=== PATIENT | male | born 1955 | race Caucasian/White ===

== ENCOUNTER 2020-10-20 13:48 | Outpatient (CLI) | payer OTHER, SELFPAY ==
--- NOTE | ~2020-10-20 | XR_ITS ---
XR lumbar spine 2-3V 10/20/2020 14:13 Indication: Low back pain Procedure: 3 views lumbar spine Comparison: No prior studies for comparison. Findings: There is mild levocurvature of the lumbar spine. There is disc narrowing at all lumbar leve ls. There is moderate facet hypertrophy of the mid and lower lumbar spine. There is grade 1 degenerat suyapa spondylolisthesis at L4-5. No acute fracture or traumatic malalignment. Sacral foramen are symmet franck. Impression: 1: Moderate lumbar spondylosis. Reviewed, dictated and finalized at location A. Impression: 1: Moderate lumbar spondylosis.
--- NOTE | ~2020-10-20 | CT_ITS ---
EXAMINATION: CT lung screening DATE: 10/20/2020 14:29 INDICATION: Nicotine dependence TECHNIQUE: Computed tomography (CT) of the chest was performed without intravenous contrast. The dose -length product was 252.14 mGy-cm. Automated exposure control and iterative reconstruction technique were employed. COMPARISON: None FINDINGS: There is atherosclerosis and ectasia of the aortic arch measuring up to 4 cm. Nonenlarged a xillary lymph nodes. No mediastinal or hilar lymphadenopathy. No significant pleural or pericardial e ffusion. There is atherosclerosis of the coronary arteries. There is a linear density in the right mi ddle lobe measuring 7 x 2 mm abutting the minor fissure. There is left upper lobe scarring. There is suggestion of partial left upper lobectomy. Clinically correlate. No endobronchial lesions. There is left lower lobe scarring. Mild thoracic spondylosis. No lytic or blastic lesions. IMPRESSION: 1. Lung-RADS category 2: Benign appearance or behavior. Continue annual screening with noncontrast lo w-dose chest CT in 12 months. Reviewed, dictated and finalized at location A. IMPRESSION: 1. Lung-RADS category 2: Benign appearance or behavior. Continue annual screeni ng with noncontrast low-dose chest CT in 12 months.
== END 2020-10-20 13:49 | disposition home or self-care (01) ==
PROVIDERS: PCP Family Medicine; Visit Provider Physician Assistant Medical
DX: Z12.2 Encounter for screening for malignant neoplasm of respiratory organs (principal); Z87.891 Personal history of nicotine dependence
CPT/HCPCS: 71271; 72100

== ENCOUNTER 2021-06-09 21:33 | Inpatient (IN) | payer OTHER, SELFPAY ==
--- NOTE | ~2021-06-09 | XR_ITS ---
EXAMINATION: XR chest 2V EXAM DATE: 06/09/2021 22:07 INDICATION: Left-sided chest pain, worse today. TECHNIQUE: Frontal and lateral projections of the chest obtained and reviewed. There is no prior sulema dy for comparison. FINDINGS: Old left 6th rib fracture. There is left pleural blunting probably chronic. No confluent c onsolidation, pneumothorax or pleural effusion suspected. Cardiomediastinal silhouette is normal. IMPRESSION: No acute cardiopulmonary findings. Reviewed, dictated and finalized at location A. ULTING DATABASE ADMINISTRATOR
[2021-06-09 21:34] VITALS: BP 159/118; PULSE 112; RESP 20; TEMP 36.6; O2SAT 97
--- NOTE | 2021-06-09 21:48 | ECG_ITS ---
Measurements Intervals [place] Rate: 87 P: 69 ME: 157 QRS: 65 QRSD: 99 T: 50 QT: 386 QTc: 466 Interpretive Statements SINUS RHYTHM BORDERLINE ST ABNORMALITY- ANTEROLATERAL LEADS BORDERLINE ECG Electronically Signed On 06-10-2021 8:10:05 COMPOSITION BOARD PRESS OPERATOR by Rashaad Greenwood D.O.
--- NOTE | 2021-06-09 21:49 | ED.CHESTPAIN ---
HPI - Chest Pain General Chief Complaint: Chest Pain Stated Complaint: L sided chest pain, neck pain Time Seen by Provider: 06/09/21 21:38 Source: patient and RN notes reviewed Mode of arrival: ambulatory Limitations: no limitations History of Present Illness HPI narrative: This is a 66 year old male with history of hypertension, obesity, hyperlipidemia, and smoking who presents for evaluation of left chest pain. He started having pain 2 weeks ago. He describes left anterior chest pain with radiating pain to left upper arm with nausea. His pain has been intermittent and lasting a couple hours. He would go a few days with out pain. He developed worse pain around noon today that he states was constant. He denies diaphoresis, shortness of breath, cough, fever, vomiting. He thinks his pain may be worse with exertion. He denies history of heart disease, and he denies history of cardiac testing. EMS performed an EKG on patient. He was given aspirin 324 mg by EMS. He denies any chest pain currently. Related Data Home Medications Medication Instructions Recorded Confirmed aspirin 81 mg tablet,delayed 81 mg PO DAILY 08/20/19 06/10/21 release cyclobenzaprine 10 mg PO TID PRN 06/10/21 glycopyrrolate 1 mg PO BID 06/10/21 06/10/21 lisinopril 40 mg PO HS 06/10/21 06/10/21 metoprolol succinate 25 mg PO HS 06/10/21 06/10/21 tamsulosin 0.4 mg PO HS 06/10/21 06/10/21 triamterene-hydrochlorothiazid 1 cap PO HS 06/10/21 06/10/21 Allergies Allergy/AdvReac Type Severity Reaction Status Date / Time amlodipine Allergy Unknown syncope Verified 06/09/21 21:41 Review of Systems Review of Systems: All systems reviewed & are unremarkable except as noted in HPI and below Constitutional: Constitutional: Denies chills and Denies fever(s) ENT: Denies nasal congestion and Denies sore throat Respiratory: Respiratory: Denies cough PMFSH Past Medical History Medical History (Updated 06/10/21 @ 08:10 by Eirka Chu MD) Essential (primary) hypertension Mixed hyperlipidemia Obesity (BMI 30.0-34.9) Sleep apnea, unspecified Family History Family History (Updated 06/10/21 @ 05:45 by Roseanne Miles RN) Father Family history of Alzheimer's disease Malignant neoplasm of prostate Mother Family history of pancreatic cancer Diabetes mellitus Sibling Malignant neoplasm of prostate Cerebrovascular accident Social History Social History (Updated 03/08/21 @ 11:35 by Anna Marie Harper [facility]) Smoking packs per day: 1.5 Smoking cigarettes per day: 30.0 Smoking status: Current every day smoker Second hand tobacco smoke exposure: No Alcohol intake: current Drinks per week: 1 Substance use: current Substance use type: marijuana Gender identity (if verbalized by the patient): Male Spiritual care concerns: No Agree to blood products: Yes Exam Narrative: GENERAL: Well-appearing, well-nourished, and in no acute distress. HEAD: Normocephalic, atraumatic EYES: PERRLA and EOMI, conjunctiva clear without discharge THROAT:Mucous membranes moist, Oropharynx normal without erythema, exudate, peritonsillar swelling or fluctuance NECK: Supple, without lymphadenopathy or mass RESPIRATORY: No respiratory distress, Airway patent, Respirations non-labored, Clear to auscultation without rales, rhonchi or wheeze HEART: Regular rate and rhythm. No murmur heard. Normal peripheral pulses. ABDOMEN: Soft, nontender, nondistended, normal active bowel sounds. No masses. No rebound or guarding, No organomegaly. EXTREMITIES: No edema, normal strength with full range of motion. SKIN: Warm, dry, normal color without rash NEURO: Alert and oriented x3. CN 2-12 grossly intact. No focal deficits. PSYCH: Normal mood and affect. Course Consultations Consultation #1: I Discussed case with DR. Jay who accepts admission Date: 06/09/21 Time: 23:30 Consultation #2: I discussed case with Dr. Armando who will con
[2021-06-09 22:06] LABS: Basophils Absolute Auto 0.1 K/mm3 (0.0-0.1); Basophils Percent Auto 1.2 % (0.2-1.2); Eosinophils Absolute Auto 0.2 K/mm3 (0-0.3); Eosinophils Percent Auto 3.5 % (0-4.4); Hematocrit 42.9 % (42.0-52.0); Immature Granulocyte Absolute 0.01 K/mm3 (0.00-0.031); Immature Granulocyte Percent A 0.2 % (0-0.5); Lymphocytes Absolute Auto 2.27 K/mm3 (0.9-3.2); Lymphocytes Percent Auto 34.6 % (18.3-44.2); Mean Corpuscular Hemoglobin 32.5 pg (26-34); Mean Corpuscular Volume 93.1 fl (80-100); Mean Platelet Volume 10.8 fl (7.4-10.4); Monocytes Absolute Auto 0.6 K/mm3 (0.1-0.6); Monocytes Percent Auto 8.4 % (2.6-8.5); Neutrophils Absolute Auto 3.4 K/mm3 (1.3-6.7); Neutrophils Percent Auto 52.1 % (45.5-73.1); Platelet Count Result 179 k/mm3 (150-375); Red Blood Count 4.61 M/mm3 (4.6-6.20); Red Cell Distribution Width 12.3 % (11.5-14.5); White Blood Count 6.6 K/mm3 (4.5-10.0)
[2021-06-09 22:15] LABS: Prothrombin Time 13.4 Seconds (11.1-14.7)
[2021-06-09 22:16] LABS: Partial Thromboplastin Time 29.8 SECONDS (22.3-36.8)
[2021-06-09 22:21] LABS: Alanine Aminotransferase 30 U/L (4-50); Albumin Level 3.8 g/dL (3.5-5.1); Alkaline Phosphatase 60 U/L (38-126); Anion Gap 7 mmol/L (8-16); Aspartate Amino Transferase 30 U/L (17-59); Bilirubin,Total 0.5 mg/dL (0.2-1.3); Blood Urea Nitrogen 16 mg/dL (9-20); Calcium 8.9 mg/dL (8.4-10.2); Carbon Dioxide 34 mmol/L (22-30); Chloride 98 mmol/L (98-107); Estimated Glomerular Filt Rate > 60; Glucose 108 mg/dL (65-110); Lipase 95 U/L (23-300); Potassium 3.3 mmol/L (3.4-5.0); Sodium 139 mmol/L (137-145)
[2021-06-09 22:46] VITALS: BP 142/107; PULSE 99; RESP 18; O2SAT 97
[2021-06-09] MEDS: ASPIRIN 81 MG CHEWABLE TABLET 324 MG PO (22:46)
[2021-06-09 22:55] LABS: Troponin I 0.085 ng/mL (0.000-0.034)
--- NOTE | 2021-06-09 23:09 | ECG_ITS ---
Measurements Intervals [place] Rate: 108 P: 71 [place]: 157 QRS: 68 QRSD: 95 T: 26 QT: 345 QTc: 463 Interpretive Statements SINUS T[address] ST ABNORMALITY IN ANTEROLATERAL LEADS- CONSIDER ISCHEMIA BASELINE ARTIFACT- I, III, AVL ABNORMAL ECG Electronically Signed On 06-10-2021 16:13:09 SENIOR UI UX DESIGNER by Rashaad Greenwood D.O.
[2021-06-09] MEDS: NITROGLYCERIN SL 0.4 MG TABLET SUBLINGUAL (23:22)
[2021-06-09 23:23] VITALS: PULSE 93
[2021-06-09] MEDS: METOPROLOL TARTRATE 50 MG TAB PO (23:23)
[2021-06-09] MEDS: PANTOPRAZOLE SODIUM IV 40 MG VIAL IV PUSH (23:23)
[2021-06-09] MEDS: ONDANSETRON INJ 4 MG/2 ML VIAL IV PUSH (23:26)
--- NOTE | 2021-06-09 23:32 | PC.NURSE ---
1 tablet of 0.4mg of Nitroglycerin given sublingual. after 5 minutes of the first dose pt states his chest pressure has subsided.
[2021-06-10] VITALS (32 sets, daily range): BP systolic 115–197; BP diastolic 81–119; PULSE 66–92; RESP 12–20; TEMP 36.3–37.3; O2SAT 92–100; BMI 34.8
[2021-06-10] MEDS: ENOXAPARIN 120 MG/0.8 ML SYRINGE 110 MG SUB-Q (00:17)
[2021-06-10 01:47] LABS: Troponin I 0.619 ng/mL (0.000-0.034)
[2021-06-10 08:15] LABS: Hematocrit 41.9 % (42.0-52.0); Hemoglobin 14.5 g/dL (14.0-18.0); Mean Corpuscular HGB Conc 34.6 g/dl (32-36); Mean Corpuscular Hemoglobin 32.2 pg (26-34); Mean Corpuscular Volume 92.9 fl (80-100); Mean Platelet Volume 11.4 fl (7.4-10.4); Platelet Count Result 178 k/mm3 (150-375); Red Blood Count 4.51 M/mm3 (4.6-6.20); Red Cell Distribution Width 12.5 % (11.5-14.5); White Blood Count 6.1 K/mm3 (4.5-10.0)
--- NOTE | 2021-06-10 09:02 | PM.CNCAR ---
Assessment and Plan Additional Plan 66-year-old man presenting with intermittent ischemic chest pain for about 2 weeks. ECG shows some modest diffuse ST segment depression and he has had a [id number] troponin rise. Risk factors are multiple and include hypertension dyslipidemia and longstanding cigarette smoking. In this setting catheterization is clearly indicated and has been recommended the patient understands this. I explained the procedure in detail luting the risks he wishes to proceed. We will perform an angiogram later today and and further recommendations will be forthcoming Allan Middleton MD [facility] History of Present Illness History of Present Illness Consult date/time: 06/10/21 09:02 Consult reason: chest pain Reason For Visit: Chest pain, elevated troponin Narrative: This is a pleasant 66-year-old man I am seeing at the request of the hospitalist's today in consultation because of acute coronary syndrome/non ST elevation [place]. he is not really see known to have any coronary artery disease but before this and has been having symptoms of intermittent chest pain for about 2-3 weeks. The symptoms began before Thanksgiving he has describes episodes that occur sporadically where he has some retrosternal burning like chest pain radiating into the left shoulder and down the left arm. These episodes would sometimes be transient for a few minutes other times would last for a number of hours. He contacted his PCP about these symptoms and was advised to come to the emergency room which he did not. Yesterday he had an episode that was even more prolonged and lasted most of the day so he finally decided to come into the emergency department. His ECG in the ED demonstrates sinus rhythm with some very mild ST segment depression somewhat globally. His troponin levels have risen from minimally elevated to 1.9 and in this setting I am seeing him in consultation. He has received aspirin, a dose of Lovenox topical nitrates his beta-roly and in this setting is being seen in consultation he seems to be comfortable this morning and denies any other complaints. He once again states he has not been known to have any cardiac diagnosis before this. He has multiple risk factors including longstanding hypertension, dyslipidemia and longstanding cigarette smoking. 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 He eventually underwent a left upper lobectomy and does not know any specific diagnosis but was clear in that he did not have a malignancy. Review of Systems Constitutional: Constitutional: Reports no additional constitutional complaints Eyes: Eyes: Reports no additional eye complaints ENT: Reports system reviewed and no additional complaints, except as documented Cardiovascular: Cardiovascular: Reports as per HPI Respiratory: Respiratory: Reports as per HPI Gastrointestinal: Gastrointestinal: Reports no additional gastrointestinal complaints Musculoskeletal: Musculoskeletal: Reports no additional musculoskeletal complaints Integumentary/Breasts: Skin/Breast: Reports system reviewed and no additional complaints, except as docu Neurologic: Reports system reviewed and no additional complaints, except as documented Endocrine: Endocrine: Reports no additional endocrine complaints Hematologic/Lymphatic: Hematologic/Lymphatic: Reports no additional hematologic/lymphatic complaints Allergic/Immunologic: Allergic/Immunologic: Reports no additional allergic/immunologic complaints [facility] Past Medical History Medical History (Updated 06/10/21 @ 08:10 by Erika Chu MD) Essential (primary) hypertension Mixed hyperlipidemia Obesity (BMI 30.0-34.9) Sleep apnea, unspecified Family History Family History (Updated 06/10/21 @ 05:45 by
[2021-06-10 09:37] LABS: Anion Gap 4 mmol/L (8-16); Blood Urea Nitrogen 16 mg/dL (9-20); Carbon Dioxide 38 mmol/L (22-30); Chloride 98 mmol/L (98-107); Estimated CRCL calculation 90 ml/min; Estimated Glomerular Filt Rate > 60; Glucose 98 mg/dL (65-110); Magnesium 1.8 mg/dL (1.6-2.3); Potassium 3.5 mmol/L (3.4-5.0); Sodium 140 mmol/L (137-145)
[2021-06-10] MEDS: FAMOTIDINE 20 MG/2 ML VIAL IV PUSH ×2 (10:47→21:31)
--- NOTE | 2021-06-10 11:42 | WPDMODSED ---
Moderate Sedation Note-Pt Data Patient Data Diagnosis: acute coronary syndrome / non ST elevation NM Present Complaint: intermittent chest pain Procedure to be performed/Plan: left heart catheterization Allergies Allergy/AdvReac Type Severity Reaction Status Date / Time amlodipine Allergy Unknown syncope Verified 06/09/21 21:41 Home Medications Medication Instructions Recorded Confirmed Type aspirin 81 mg tablet,delayed 81 mg PO DAILY 08/20/19 06/10/21 History release cyclobenzaprine 10 mg PO TID PRN 06/10/21 History glycopyrrolate 1 mg PO BID 06/10/21 06/10/21 History lisinopril 40 mg PO HS 06/10/21 06/10/21 History metoprolol succinate 25 mg PO HS 06/10/21 06/10/21 History tamsulosin 0.4 mg PO HS 06/10/21 06/10/21 History triamterene-hydrochlorothiazid 1 cap PO HS 06/10/21 06/10/21 History Current Medications: Active Medications Aspirin (Aspirin 81 Mg Enteric Tablet) 81 mg PO DAILY [facility] Famotidine (Famotidine 20 Mg/2 Ml Vial) 20 mg IV PUSH Q12HR [facility] Last Admin: 06/10/21 10:47 Dose: 20 mg Documented by: Glycopyrrolate (Glycopyrrolate 1 Mg Tablet) 1 mg PO BID [facility] Acetaminophen (Ofirmev 1,000 Mg Ivpb) 1,000 mg in 100 mls @ 400 mls/hr IVPB Q6H PRN PRN Reason: Mild Pain (1-3) or Fever Stop: 06/11/21 00:31 Lisinopril (Lisinopril 20 Mg Tablet) 40 mg PO HS [facility] Metoprolol Succinate (Metoprolol Succinate Ext Rel 25 Mg Tabcr) 25 mg PO HS [facility] Morphine Sulfate (Morphine Sulfate (*Crx) 4 Mg/Ml Inj) 4 mg IV PUSH Q2H PRN PRN Reason: Pain Rated 7-10 Nitroglycerin (Nitroglycerin Sl 0.4 Mg Tablet) 0.4 mg SUBLINGUAL Q5MIN PRN PRN Reason: Chest Pain Ondansetron HCl (Ondansetron Inj 4 Mg/2 Ml Vial) 4 mg IV PUSH Q4H PRN PRN Reason: Nausea Tamsulosin HCl (Tamsulosin Hcl 0.4 Mg Capsule) 0.4 mg PO HS [facility] Triamterene/Hydrochlorothiazide (Triamterene 37.5 Mg/Hctz 25 Mg (Maxzide) Tablet) 1 tab PO HS [facility] Sedation/Anesthesia: No previous sedation/anesthesia problems (including family history). [facility] Past Medical History Medical History (Updated 06/10/21 @ 08:10 by Erika Chu MD) Essential (primary) hypertension Mixed hyperlipidemia Obesity (BMI 30.0-34.9) Sleep apnea, unspecified Family History Family History (Updated 06/10/21 @ 05:45 by Roseanne Miles RN) Father Family history of Alzheimer's disease Malignant neoplasm of prostate Mother Family history of pancreatic cancer Diabetes mellitus Sibling Malignant neoplasm of prostate Cerebrovascular accident Social History Social History (Updated 03/08/21 @ 11:35 by Anna Marie Harper CMA) Smoking packs per day: 1.5 Smoking cigarettes per day: 30.0 Smoking status: Current every day smoker Second hand tobacco smoke exposure: No Alcohol intake: current Drinks per week: 1 Substance use: current Substance use type: marijuana Gender identity (if verbalized by the patient): Male Spiritual care concerns: No Agree to blood products: Yes Mod Sed Physical Exam Physical Exam Pre Procedural Exam: Normal: Neck, Throat, Airway, Lungs, Heart Size ( PMI difficult to palpate), Heart Rate, Heart Rhythm and Extremities and Variation: Appearance ( obese white male no apparent distress) Hours since solid foods: 12 Hours since liquid intake: 12 Mallampati Classification: class II Internal Medicine - PN: Obj Da Vital Signs Vital Signs: Vital Signs - 24 hr 06/09/21 21:34 06/09/21 22:46 06/09/21 23:23 Temperature 36.6 C Pulse Rate 112 H 99 93 Respiratory Rate 20 18 Blood Pressure 159/118 H 142/107 H Pulse Oximetry 97 97 06/10/21 00:13 06/10/21 01:22 06/10/21 01:40 Temperature 36.4 C L Pulse Rate 88 72 71 Respiratory Rate 20 18 20 Blood Pressure 146/101 H 144/101 H 128/86 Pulse Oximetry 97 97 96 06/10/21 04:00 06/10/21 06:00 06/10/21 07:48 Temperature 36.4 C L 36.5 C Pulse Rate 83 74 69 Respiratory Rate 18 18 Blood Pressure 125/92 H 136/81 Pulse Oximetry 96 94 06/10/21 08:00 06/10/21 10:00 1
--- NOTE | 2021-06-10 12:40 | ECG_ITS ---
Measurements Intervals [place] Rate: 72 P: 77 [place]: 164 QRS: 64 QRSD: 114 T: 51 QT: 401 QTc: 441 Interpretive Statements SINUS RHYTHM INTRAVENTRICULAR CONDUCTION DELAY BASELINE ARTIFACT- I, II, III, AVR, AVL, AVF, V4 BORDERLINE ECG Electronically Signed On 06-10-2021 16:33:22 POLICE SERVICE TECHNICIAN by Rashaad Greenwood D.O.
--- NOTE | 2021-06-10 12:43 | WPDCARDPROC ---
Cardiac Cath Procedure Note Date of procedure:: 06/10/21 Performing physician:: Allan Middleton MD Indication:: non ST-elevation Brief clinical history:: this is a 66-year-old man without previous coronary history who has risk factors including hypertension dyslipidemia and smoking. He has been having intermittent ischemic chest pain for 2-3 weeks. He came in with worsening symptoms and a moderate troponin rise. Procedure Procedure performed:: Left ventriculography coronary angiography PCI(REGLA) to the circumflex Sedation/Medication given:: fentanyl 50 mg Versed 2 mg case start time 11:57 a.m. case end time 12:35 p.m. sedation provided by Geraldine Reza RN, trained observer Access site:: right femoral artery Estimated blood loss:: 20 cc Procedure note:: patient was brought to the cardiac catheterization lab postabsorptive state where the right femoral triangle was prepared and draped in the usual fashion. Anesthesia was provided 1% lidocaine infiltrated locally. Using the modified Seldinger technique the right common femoral artery was punctured and a 5 [place] vascular sheath was placed. After this left heart catheterization was carried out. I placed a 5 [place] angled pigtail catheter to document left-sided hemodynamics and to inject LV g in the CASE projection. Following this the left coronary artery was engaged and injected using a standard 5 [place] FL4 catheter. The right coronary was engaged and injected using a standard 5 [place] JR4 catheter. The cineangiograms were then reviewed and PCI of the circumflex was recommended and carried out as detailed below. Prior to PCI the 5 [place] sheath was changed out over the guidewire for a 6 [place] and the patient was then systemically anticoagulated with a bolus and infusion of Angiomax. He received aspirin and then 600 mg of clopidogrel orally as a loading dose prior to PCI. Following intervention the sheath was sutured into position the patient was taken to the holding area for recovery and sheath removal. The procedure was well tolerated there were no apparent complications and he left the microbiological laboratory technician with no evidence of a groin hematoma. Findings:: Hemodynamics: Central aortic pressure is 174/90 left ventricle 176/5 end-diastolic 20. No gradient on pullback across the aortic valve. The left main coronary artery is nicely patent the left anterior descending is a moderate caliber artery extending down to around the apex the LAD and its branches are smooth and free of disease. The circumflex is a large caliber vessel giving rise to a very small mid OM branch and then larger posterolateral branches. The circumflex trunk has a 95% stenosis that is relatively discrete in its midportion. The right coronary artery is large in caliber and dominant to the posterior circulation the right coronary artery is free of disease. Intervention: The left coronary artery was injected in gauge using a CLS 4.5 guiding catheter. I used a 0.014 BMW coronary guidewire to wire the circumflex traverse the lesion and was advanced into the distal circumflex. The lesion was pre-dilated using a 3 x 20 mm emerge balloon and then stented using a 4 x 22 mm Orsiro sirolimus eluting stent with an excellent angiographic result. There was -20% stenosis with a step-down at the end of the stent procedure. Vessel was widely patent with no disruption dissection or distal embolization. Conclusion:: 1. Severe single-vessel coronary artery disease with high-grade 95% stenosis in the trunk of the circumflex as detailed above this is the target lesion for the patient's non ST elevation [place]. 2. successful revascularization using the 4 x 20 Orsiro stent described above with a very good angiographic result 3. well-preserved left ventricular systolic function Allan Middleton MD [facility]
[2021-06-10] MEDS: NITROGLYCERIN SL 0.4 MG TABLET SUBLINGUAL (13:15)
[2021-06-10] MEDS: NITROGLYCERIN OINTMENT 1 INCH DOSE TRANSDERM (13:44)
--- NOTE | 2021-06-10 13:45 | PC.NURSE ---
On 06/10/21, the student, [Kasia Kenyon], provided care and completed [facility] documentation on this patient. I have reviewed the student's documentation and agree with the findings.
[2021-06-10] MEDS: MORPHINE SULFATE (*CRX) 4 MG/ML INJ IV PUSH (13:52)
[2021-06-10] MEDS: SODIUM CHLORIDE 0.9% IV 1,000 ML 125 ML IV CONT (13:52)
[2021-06-10] MEDS: METOPROLOL SUCCINATE EXT REL 25 MG TABCR PO ×2 (15:35→15:50)
[2021-06-10 16:02] LABS: Cholesterol 219 mg/dL (0-200); HDL Direct 22 mg/dL; Triglycerides 367 mg/dL (<150)
--- NOTE | 2021-06-10 16:04 | SUR.PHASEII ---
1635 - Pt BP elevated 175/115, spoke with Dr Middleton and orders to give PM dose of metoprolol now. Called pharmacy to send dose.
[2021-06-10 16:13] LABS: LDL Cholesterol Direct 143 mg/dL
[2021-06-10] MEDS: ACETAMINOPHEN 500 MG TABLET 1000 MG PO (16:28)
--- NOTE | 2021-06-10 16:31 | SUR.PHASEII ---
1630 - Pt C/O headache 11/08, Dr Norris called, orders noted for tylenol one time dose.
[2021-06-10] MEDS: TRIAMTERENE 37.5 MG/HCTZ 25 MG (MAXZIDE) TABLET 1 TAB PO (17:28)
[2021-06-10] MEDS: GLYCOPYRROLATE 1 MG TABLET PO (17:28)
[2021-06-10] MEDS: lisinopriL 20 MG TABLET 40 MG PO (17:28)
--- NOTE | 2021-06-10 18:38 | PM.IMHP ---
H&P: HPI History of Present Illness Date/Time: 06/10/21 18:38 ED-HPI narrative: This is a 66 year old male with history of hypertension, obesity, hyperlipidemia, and smoking who presents for evaluation of left chest pain. He started having pain 2 weeks ago. He describes left anterior chest pain with radiating pain to left upper arm with nausea. His pain has been intermittent and lasting a couple hours. He would go a few days with out pain. He developed worse pain around noon today that he states was constant. He denies diaphoresis, shortness of breath, cough, fever, vomiting. He thinks his pain may be worse with exertion. He denies history of heart disease, and he denies history of cardiac testing. EMS performed an EKG on patient. He was given aspirin 324 mg by EMS. He denies any chest pain currently. Patient continue to have chest pain is tropes were elevated 0.085, 0.619, 1.99 patient was seen by Cardiology recommending cardiac catheterization to further evaluate, will follow-up on cardiac catheterization and further recommendation to follow. Chief Complaint: chest pain Review of Systems Review of Systems: All systems reviewed & are unremarkable except as noted in HPI and below PMFSH Past Medical History Medical History (Updated 06/10/21 @ 08:10 by Erika Chu MD) Essential (primary) hypertension Mixed hyperlipidemia Obesity (BMI 30.0-34.9) Sleep apnea, unspecified Family History Family History (Updated 06/10/21 @ 05:45 by Roseanne Miles RN) Father Family history of Alzheimer's disease Malignant neoplasm of prostate Mother Family history of pancreatic cancer Diabetes mellitus Sibling Malignant neoplasm of prostate Cerebrovascular accident Social History Social History (Updated 03/08/21 @ 11:35 by Anna Marie Harper CMA) Smoking packs per day: 1.5 Smoking cigarettes per day: 30.0 Smoking status: Current every day smoker Second hand tobacco smoke exposure: No Alcohol intake: current Drinks per week: 1 Substance use: current Substance use type: marijuana Gender identity (if verbalized by the patient): Male Spiritual care concerns: No Agree to blood products: Yes Meds Home Medications and Allergies Home Medications Medication Instructions Recorded Confirmed Type aspirin 81 mg tablet,delayed 81 mg PO DAILY 08/20/19 06/10/21 History release cyclobenzaprine 10 mg PO TID PRN 06/10/21 History glycopyrrolate 1 mg PO BID 06/10/21 06/10/21 History lisinopril 40 mg PO HS 06/10/21 06/10/21 History metoprolol succinate 25 mg PO HS 06/10/21 06/10/21 History tamsulosin 0.4 mg PO HS 06/10/21 06/10/21 History triamterene-hydrochlorothiazid 1 cap PO HS 06/10/21 06/10/21 History clopidogrel 75 mg PO DAILY #30 tablet 06/11/21 Rx rosuvastatin [Crestor] 20 mg PO DAILY #30 tablet 06/11/21 Rx Allergies Allergy/AdvReac Type Severity Reaction Status Date / Time amlodipine Allergy Unknown syncope Verified 06/09/21 21:41 Vital Signs Vital Signs - 24 hr 06/09/21 21:34 06/09/21 22:46 06/09/21 23:23 Temperature 97.8 F Pulse Rate 112 H 99 93 Pulse Rate [Right Pedal (Dorsalis Pedis)] Respiratory Rate 20 18 Blood Pressure 159/118 H 142/107 H Pulse Oximetry 97 97 06/10/21 00:13 06/10/21 01:22 06/10/21 01:40 Temperature 97.5 F L Pulse Rate 88 72 71 Pulse Rate [Right Pedal (Dorsalis Pedis)] Respiratory Rate 20 18 20 Blood Pressure 146/101 H 144/101 H 128/86 Pulse Oximetry 97 97 96 06/10/21 04:00 06/10/21 06:00 06/10/21 07:48 Temperature 97.5 F L 97.7 F Pulse Rate 83 74 69 Pulse Rate [Right Pedal (Dorsalis Pedis)] Respiratory Rate 18 18 Blood Pressure 125/92 H 136/81 Pulse Oximetry 96 94 06/10/21 08:00 06/10/21 10:00 06/10/21 11:27 Temperature 98.3 F Pulse Rate 69 67 69 Pulse Rate [Right Pedal (Dorsalis Pedis)] Respiratory Rate 16 Blood Pressure 151/87 H Pulse Oximetry 95 06/10/21 13:07 06/10/21 13:
[2021-06-10] MEDS: TAMSULOSIN HCL 0.4 MG CAPSULE PO (21:31)
[2021-06-11] VITALS (7 sets, daily range): BP systolic 132–141; BP diastolic 78–86; PULSE 66–85; RESP 15–16; TEMP 35.8–36.6; O2SAT 97–100
[2021-06-11 05:07] LABS: Hematocrit 39.8 % (42.0-52.0); Hemoglobin 13.8 g/dL (14.0-18.0); Mean Corpuscular HGB Conc 34.7 g/dl (32-36); Mean Corpuscular Hemoglobin 31.6 pg (26-34); Mean Corpuscular Volume 91.1 fl (80-100); Mean Platelet Volume 10.8 fl (7.4-10.4); Platelet Count Result 187 k/mm3 (150-375); Red Blood Count 4.37 M/mm3 (4.6-6.20); Red Cell Distribution Width 12.2 % (11.5-14.5)
--- NOTE | 2021-06-11 05:11 | ECG_ITS ---
Measurements Intervals [place] Rate: 70 P: 62 DE: 161 QRS: 62 QRSD: 104 T: 13 QT: 434 QTc: 469 Interpretive Statements SINUS RHYTHM NORMAL ECG Electronically Signed On 06-11-2021 8:01:03 MACHINE SORTER by Rashaad Greenwood D.O.
[2021-06-11 05:19] LABS: Anion Gap 6 mmol/L (8-16); Blood Urea Nitrogen 14 mg/dL (9-20); Calcium 9.1 mg/dL (8.4-10.2); Carbon Dioxide 31 mmol/L (22-30); Chloride 99 mmol/L (98-107); Estimated CRCL calculation 90 ml/min; Estimated Glomerular Filt Rate > 60; Glucose 111 mg/dL (65-110); Potassium 3.3 mmol/L (3.4-5.0); Sodium 136 mmol/L (137-145)
[2021-06-11] MEDS: FAMOTIDINE 20 MG/2 ML VIAL IV PUSH (08:29)
[2021-06-11] MEDS: GLYCOPYRROLATE 1 MG TABLET PO (08:29)
[2021-06-11] MEDS: lisinopriL 20 MG TABLET 40 MG PO (08:29)
[2021-06-11] MEDS: CLOPIDOGREL BISULFATE 75 MG TABLET PO (08:32)
[2021-06-11] MEDS: ASPIRIN 81 MG CHEWABLE TABLET PO (08:32)
--- NOTE | 2021-06-11 09:32 | PM.PNCARD ---
Progress Note: A&P Additional Plan 66-year-old man with: Coronary artery disease presenting with acute coronary syndrome underwent successful revascularization yesterday as detailed in the lab technologist note. He appears in my opinion to be a good candidate for discharge today. I will discontinue his nitroglycerin paste. He is already taking aspirin, lisinopril and metoprolol. Clopidogrel and rosuvastatin have been added to his regimen. I will arrange for office follow-up in 2-3 weeks. Allan Middleton MD [facility] Subjective Date/time seen: Date of service: 06/11/21 09:32 Interval history: Follow-up visit in this 66-year-old man with: Newly diagnosed coronary artery disease presenting with acute coronary syndrome/non ST elevation [place]. Patient had a modest troponin rise and was found to have severe single-vessel coronary disease yesterday with high-grade stenosis in the midportion of the circumflex. This was addressed successfully with PCI using a large 4 mm drug-eluting stent with a very good anatomical result. He is asymptomatic this morning feels well. He did have some chest discomfort lingering after the intervention for which was placed on some nitro paste. Discussed with him in detail the importance of adherence to his dual anti-platelet therapy and the addition of a statin to his regimen. Exam Const: General: comfortable and no acute distress HENMT: Mouth: Yes moist mucous membranes Eyes: Sclera: sclerae normal Pupils: Equal, round and reactive pupils present Neck: Neck: supple and no JVD Resp: Effort & Inspection: normal respiratory effort Auscultation: clear to auscultation bilaterally Cardio: Rate: regular rate Rhythm: regular rhythm Other: No murmur no gallop no rub GI: GI Palp: Yes Soft to palpation Auscultation: normal bowel sounds Skin: General skin exam: normal color Neuro: Cognition (Neuro): normal cognition Extrem: General: normal to inspection Objective Data Vital Signs Vital Signs: Vital Signs - 24 hr 06/10/21 10:00 06/10/21 11:27 06/10/21 13:07 Temperature 36.8 C 36.3 C L Pulse Rate 67 69 72 Pulse Rate [Right Pedal (Dorsalis Pedis)] 75 Respiratory Rate 16 Blood Pressure 151/87 H 197/111 H Pulse Oximetry 95 94 06/10/21 13:22 06/10/21 13:37 06/10/21 13:52 Temperature Pulse Rate 81 68 72 Pulse Rate [Right Pedal (Dorsalis Pedis)] Respiratory Rate Blood Pressure 159/108 H 159/97 H 154/102 H Pulse Oximetry 92 98 99 06/10/21 14:00 06/10/21 14:30 06/10/21 15:05 Temperature Pulse Rate 72 69 68 Pulse Rate [Right Pedal (Dorsalis Pedis)] Respiratory Rate 13 Blood Pressure 153/97 H 151/97 H 148/98 H Pulse Oximetry 100 100 99 06/10/21 15:15 06/10/21 15:25 06/10/21 15:35 Temperature Pulse Rate 69 70 70 Pulse Rate [Right Pedal (Dorsalis Pedis)] Respiratory Rate 12 14 14 Blood Pressure 157/106 H 175/109 H 175/106 H Pulse Oximetry 100 98 98 06/10/21 15:45 06/10/21 15:50 06/10/21 16:00 Temperature Pulse Rate 71 70 79 Pulse Rate [Right Pedal (Dorsalis Pedis)] Respiratory Rate 14 14 Blood Pressure 172/110 H 172/119 H Pulse Oximetry 98 98 06/10/21 16:15 06/10/21 16:30 06/10/21 17:00 Temperature 36.6 C Pulse Rate 80 80 72 Pulse Rate [Right Pedal (Dorsalis Pedis)] Respiratory Rate 14 14 20 Blood Pressure 174/108 H 178/112 H 175/100 H Pulse Oximetry 96 96 94 06/10/21 17:25 06/10/21 17:57 06/10/21 18:00 Temperature 37.3 C Pulse Rate 88 92 91 Pulse Rate [Right Pedal (Dorsalis Pedis)] Respiratory Rate 18 Blood Pressure 115/81 Pulse Oximetry 95 06/10/21 18:16 06/10/21 19:42 06/10/21 20:00 Temperature 36.6 C Pulse Rate 91 77 66 Pulse Rate [Right Pedal (Dorsalis Pedis)] Respiratory Rate 16 Blood Pressure 137/90 Pulse Oximetry 94 06/10/21 22:00 06/11/21 00:00 06/11/21 02:00 Temperature 36.4 C L Pulse Rate 84 67 66 Pulse Rate [Right Pedal (Dorsalis Pedis)] Respiratory Rate 16 Blood
--- NOTE | 2021-06-11 11:53 | PM.DS ---
DS: Admitting Diagnosis Discharge Date 06/11/2021 Admitting Diagnosis Chest pain DS: Discharge Diagnosis Discharge Diagnosis (1) Chest pain: Code(s): R07.9 - Chest pain, unspecified Status: Acute Assessment and Plan: ED-HPI narrative: This is a 66 year old male with history of hypertension, obesity, hyperlipidemia, and smoking who presents for evaluation of left chest pain. He started having pain 2 weeks ago. He describes left anterior chest pain with radiating pain to left upper arm with nausea. His pain has been intermittent and lasting a couple hours. He would go a few days with out pain. He developed worse pain around noon today that he states was constant. He denies diaphoresis, shortness of breath, cough, fever, vomiting. He thinks his pain may be worse with exertion. He denies history of heart disease, and he denies history of cardiac testing. EMS performed an EKG on patient. He was given aspirin 324 mg by EMS. He denies any chest pain currently. Patient continue to have chest pain is tropes were elevated 0.085, 0.619, 1.99 patient was seen by Cardiology recommending cardiac catheterization to further evaluate, will follow-up on cardiac catheterization and further recommendation to follow. (2) Elevated troponin: Code(s): R77.8 - Other specified abnormalities of plasma proteins Status: Acute Assessment and Plan: plan is above (3) Essential (primary) hypertension: Code(s): I10 - Essential (primary) hypertension Status: Acute Assessment and Plan: will continue home regimen DS: Summary Hospital Course Reason for hospitalization: ED-HPI narrative: This is a 66 year old male with history of hypertension, obesity, hyperlipidemia, and smoking who presents for evaluation of left chest pain. He started having pain 2 weeks ago. He describes left anterior chest pain with radiating pain to left upper arm with nausea. His pain has been intermittent and lasting a couple hours. He would go a few days with out pain. He developed worse pain around noon today that he states was constant. He denies diaphoresis, shortness of breath, cough, fever, vomiting. He thinks his pain may be worse with exertion. He denies history of heart disease, and he denies history of cardiac testing. EMS performed an EKG on patient. He was given aspirin 324 mg by EMS. He denies any chest pain currently. Patient continue to have chest pain is tropes were elevated 0.085, 0.619, 1.99 patient was seen by Cardiology recommending cardiac catheterization to further evaluate, will follow-up on cardiac catheterization and further recommendation to follow. Chief Complaint: chest pain Hospital Course: Patient continue to have chest pain is tropes were elevated 0.085, 0.619, 1.99 patient was seen by Cardiology recommending cardiac catheterization to further evaluate, will follow-up on cardiac catheterization and further recommendation to follow. cardiac catheterization showed severe single-vessel disease and was stented, patient started on aspirin Brilinta and continue his home medications, today patient seen by Cardiology patient is clinically stable will discharge the patient home today. Status at Discharge Functional status at discharge: independent ambulation Overall status at discharge: patient is back to baseline Time Spent with Patient Time attestation: Total time spent providing and/or coordinating discharge services: Patient was seen and examined at the time of the discharge Condition at discharge is stable Code status: Full code. Time spent preparing discharge summary, discharge medications, discussing discharge planning with case loader operator and patient is 35 minutes. Time spent: Greater than 30 minutes Exam Narrative: moderately obese Patient is comfortable, NAD HEENT: eyes are clear and none icteric LUNGS:CTA HEART: RR S1S2 ABD: BS+, Soft and nontender Lower ex
--- NOTE | 2021-06-11 12:53 | PC.NURSE ---
06/11/21 12:45 Patient discharged to home.
== END 2021-06-11 12:45 | disposition home or self-care (01) | DRG 174 ==
LOC: ANHED 06-10 01:24 → ANHIMU 06-10 02:10
PROVIDERS: Specialist; Admitting Provider Internal Medicine; Emergency Provider General Practice; PCP Family Medicine; Visit Provider Family Medicine
PROC: 4A023N7 Measurement of Cardiac Sampling and Pressure, Left Heart, Percutaneous Approach (ICD-10-PCS; CPT 93452; principal; 2021-06-10 12:00)
PROC: 027034Z Dilation of Coronary Artery, One Artery with Drug-eluting Intraluminal Device, Percutaneous Approach (ICD-10-PCS; CPT 92928; 2021-06-10 12:00)
DX: I21.4 Non-ST elevation (NSTEMI) myocardial infarction (principal); I25.10 Atherosclerotic heart disease of native coronary artery without angina pectoris; R77.8 Other specified abnormalities of plasma proteins; I10 Essential (primary) hypertension; E66.9 Obesity, unspecified; Z68.34 Body mass index [BMI] 34.0-34.9, adult; F17.210 Nicotine dependence, cigarettes, uncomplicated; E78.2 Mixed hyperlipidemia; Z79.82 Long term (current) use of aspirin; Z79.899 Other long term (current) drug therapy
CPT/HCPCS: 36415; 71046; 80048; 80053; 80061; 83690; 83735; 84484; 85025; 85027; 85610; 85730; 87086; 87088; 93005; 93458; 96372; 96374; 96375; 99285; A9270; C1725; C1769; C1874; C1887; C1894; C9113; C9600; J0583; J1644; J1650; J2250; J2270; J2405; J3010; J7030

== ENCOUNTER 2021-09-05 11:05 | Emergency (ER) | payer OTHER, SELFPAY ==
[2021-09-05] VITALS (11 sets, daily range): BP systolic 127–152; BP diastolic 93–107; PULSE 87–110; RESP 14–22; O2SAT 96–99
--- NOTE | ~2021-09-05 | XR_ITS ---
EXAMINATION: XR chest 1V portable DATE: 09/05/2021 12:19 INDICATION: Weakness. Dizziness. TECHNIQUE: A single frontal view of the chest was obtained. COMPARISON: Chest 2 views 06/09/2021, chest CT 10/20/2020 FINDINGS: There is mild atelectasis in the lower lung zones. There is stable mild scarring in left up per lobe. No pleural effusion or pneumothorax. The heart size is normal. There is an old left sixth r ib defect. IMPRESSION: 1. Mild atelectasis in the lower lung zones and stable mild scarring in left upper lobe. Reviewed, dictated and finalized at location A. R MAKING MACHINE OPERATOR IMPRESSION: 1. Mild atelectasis in the lower lung zones and stable mild scarring in left up per lobe.
--- NOTE | 2021-09-05 11:59 | ED.GENADULT ---
HPI - General Adult General Chief complaint: Unspecified Stated complaint: dizzy, weak Time Seen by Provider: 09/05/21 11:58 Source: patient, family and RN notes reviewed Mode of arrival: ambulatory Limitations: no limitations History of Present Illness HPI narrative: Patient is 66 years old white male presented to the ED complaining of not feeling well, weak, tired, hot and cold feeling since had CO and coronary stent placement June 2021. Patient does not take his antilipid medication for the last 2 months. Also used to be on antidepressant medication which he quit July 2021. Patient denies any breath, chest pain, headache, back pain, abdominal pain. Patient does smoke, uses marijuana, does not drink Related Data Home Medications Medication Instructions Recorded Confirmed aspirin 81 mg tablet,delayed 81 mg PO DAILY 08/20/19 06/10/21 release cyclobenzaprine 10 mg PO TID PRN 06/10/21 glycopyrrolate 1 mg PO BID 06/10/21 06/10/21 lisinopril 40 mg PO HS 06/10/21 06/10/21 metoprolol succinate 25 mg PO HS 06/10/21 06/10/21 tamsulosin 0.4 mg PO HS 06/10/21 06/10/21 triamterene-hydrochlorothiazid 1 cap PO HS 06/10/21 06/10/21 Allergies Allergy/AdvReac Type Severity Reaction Status Date / Time amlodipine Allergy Unknown syncope Verified 06/09/21 21:41 [facility] Past Medical History Medical History (Updated 09/05/21 @ 13:56 by Khurram Zacarias MD) Essential (primary) hypertension Mixed hyperlipidemia Obesity (BMI 30.0-34.9) Sleep apnea, unspecified Family History Family History (Updated 06/10/21 @ 05:45 by Roseanne Miles RN) Father Family history of Alzheimer's disease Malignant neoplasm of prostate Mother Family history of pancreatic cancer Diabetes mellitus Sibling Malignant neoplasm of prostate Cerebrovascular accident Social History Social History (Updated 03/08/21 @ 11:35 by Anna Marie Harper CMA) Smoking packs per day: 1.5 Smoking cigarettes per day: 30.0 Smoking status: Current every day smoker Second hand tobacco smoke exposure: No Alcohol intake: current Drinks per week: 1 Substance use: current Substance use type: marijuana Gender identity (if verbalized by the patient): Male Spiritual care concerns: No Agree to blood products: Yes Course Course Emergency Course: Patient came to the emergency room with nonspecific symptoms. Work-up did not show any significant findings to explain patient condition. My concern are Depression secondary to the new diagnosis of heart attack, patient stopped taking the antidepressant medication after having a heart attack, the new medication after having a heart attack could be having quite a bit of side effect affecting patient feeling. Patient need to restart the antidepressant medication, to contact his analog device designer for medication evaluation, also to restart his antilipid medication. Vital Signs Vital signs: Vital Signs Pulse Rate 106 H 09/05/21 11:19 Respiratory Rate 20 09/05/21 11:19 Blood Pressure 150/97 H 09/05/21 11:19 Pulse Oximetry 98 09/05/21 11:19 Pulse Rate 106 H 09/05/21 11:22 Respiratory Rate 20 09/05/21 11:19 Blood Pressure 150/97 H 09/05/21 11:19 Pulse Oximetry 98 09/05/21 11:19 Medical Decision Making Vital Signs Vital Signs: Vital Signs Pulse Rate 106 H 09/05/21 11:19 Respiratory Rate 20 09/05/21 11:19 Blood Pressure 150/97 H 09/05/21 11:19 Pulse Oximetry 98 09/05/21 11:19 Pulse Rate 106 H 09/05/21 11:22 Respiratory Rate 20 09/05/21 11:19 Blood Pressure 150/97 H 09/05/21 11:19 Pulse Oximetry 98 09/05/21 11:19 Imaging Data Radiologist's impression: Impressions Chest X-Ray 09/05/21 12:21 IMPRESSION: 1. Mild atelectasis in the lower lung zones and stable mild scarring in left upper lobe. ECG Data EKG #1: Attestation: I personally reviewed and interpreted this ECG as follows: ECG completion date: 09/05/21
--- NOTE | 2021-09-05 12:00 | ECG_ITS ---
Measurements Intervals [place] Rate: 83 P: 60 DC: 131 QRS: 69 QRSD: 97 T: 57 QT: 373 QTc: 440 Interpretive Statements SINUS RHYTHM NORMAL ECG COMPARED TO ECG 06/11/2021 07:56:54 NO SIGNIFICANT CHANGES Electronically Signed On 09-06-2021 14:44:26 BUSINESS DEVELOPMENT OFFICER by Joseph Arredondo M.D.
[2021-09-05 12:19] LABS: Basophils Absolute Auto 0.1 K/mm3 (0.0-0.1); Basophils Percent Auto 1.1 % (0.2-1.2); Eosinophils Absolute Auto 0.2 K/mm3 (0-0.3); Eosinophils Percent Auto 3.4 % (0-4.4); Hematocrit 47.2 % (42.0-52.0); Hemoglobin 16.3 g/dL (14.0-18.0); Immature Granulocyte Absolute 0.02 K/mm3 (0.00-0.031); Immature Granulocyte Percent A 0.3 % (0-0.5); Lymphocytes Absolute Auto 2.26 K/mm3 (0.9-3.2); Mean Corpuscular HGB Conc 34.5 g/dl (32-36); Mean Corpuscular Hemoglobin 32.6 pg (26-34); Mean Corpuscular Volume 94.4 fl (80-100); Mean Platelet Volume 10.8 fl (7.4-10.4); Monocytes Absolute Auto 0.6 K/mm3 (0.1-0.6); Monocytes Percent Auto 9.6 % (2.6-8.5); Neutrophils Absolute Auto 3.3 K/mm3 (1.3-6.7); Neutrophils Percent Auto 50.6 % (45.5-73.1); Platelet Count Result 203 k/mm3 (150-375); Red Cell Distribution Width 12.5 % (11.5-14.5); White Blood Count 6.5 K/mm3 (4.5-10.0)
[2021-09-05 12:31] LABS: Alanine Aminotransferase 33 U/L (4-50); Albumin Level 4.3 g/dL (3.5-5.1); Alkaline Phosphatase 53 U/L (38-126); Anion Gap 7 mmol/L (8-16); Aspartate Amino Transferase 35 U/L (17-59); Bilirubin,Total 0.7 mg/dL (0.2-1.3); Blood Urea Nitrogen 16 mg/dL (9-20); Calcium 9.6 mg/dL (8.4-10.2); Carbon Dioxide 31 mmol/L (22-30); Chloride 101 mmol/L (98-107); Estimated CRCL calculation 92 ml/min; Estimated Glomerular Filt Rate > 60; Glucose 105 mg/dL (65-110); Potassium 3.6 mmol/L (3.4-5.0); Sodium 139 mmol/L (137-145)
[2021-09-05 13:59] LABS: Add Urine Microscopic? YES; Appearance Urine Cloudy (Clear); Bilirubin Urine Negative (Negative); Blood Urine Negative (Negative); Color Urine Yellow (Yellow); Glucose Urine UA Negative (Negative); Ketones Urine Negative (Negative); Leukocyte Esterase Ur Trace LEU/UL (Negative); Mucus Urine Rare /lpf; Nitrate Urine Negative (Negative); Protein Urine Negative (Negative); Specific Grav Ur 1.016 (1.001-1.035); Urobilinogen Urine Negative mg/dL (<2.0); WBC Urine 0-3 /hpf
== END 2021-09-05 14:08 | disposition home or self-care (01) ==
PROVIDERS: Emergency Provider Emergency Medicine; PCP Family Medicine
DX: R53.1 Weakness (principal); F32.A Depression, unspecified; I25.2 Old myocardial infarction; I10 Essential (primary) hypertension; E78.2 Mixed hyperlipidemia; E66.9 Obesity, unspecified; Z68.36 Body mass index [BMI] 36.0-36.9, adult; G47.30 Sleep apnea, unspecified; F17.210 Nicotine dependence, cigarettes, uncomplicated; Z95.5 Presence of coronary angioplasty implant and graft; Z79.82 Long term (current) use of aspirin
CPT/HCPCS: 36415; 71045; 80053; 81001; 84443; 85025; 93005; 99283

== ENCOUNTER 2021-11-04 09:03 | Outpatient (CLI) | payer OTHER, SELFPAY ==
--- NOTE | ~2021-11-04 | US_ITS ---
EXAMINATION: US carotid duplex BI DATE: 11/04/2021 10:53 INDICATION: Vertigo. Disturbance of skin sensation at the left hand. Dizziness and giddiness. TECHNIQUE: Grayscale, color Doppler, and pulsed Doppler images of the cervical carotid arteries were obtained. The degree of vessel stenosis is placed in one of the following categories: normal, <50%, 5 0-69%, >=70% but less than near-occlusion, near-occlusion, or total occlusion. Note that percent sten osis relative to normal distal artery lumen diameter is indirectly measured from velocity measurement s as described by Alex, et al. Radiology 2003; [id number]. COMPARISON: None. FINDINGS: RIGHT: The right common carotid artery (CCA) peak systolic velocity (PSV) is 52 cm/s. The right internal car otid artery (ICA) PSV is 50 cm/s. The right ICA end-diastolic velocity (EDV) is 20 cm/s. The right IC A/CCA PSV ratio is 1.0. Grayscale and color Doppler images yield an estimate of <50% diameter reducti on from plaque in the ICA. The external carotid artery (ECA) PSV is 81 cm/s. There is antegrade flow in the right vertebral artery. LEFT: The left CCA PSV is 57 cm/s. The left ICA PSV is 57 cm/s. The left ICA EDV is 19 cm/s. The left ICA/C CA PSV ratio is 1.0. Grayscale and color Doppler images yield an estimate of <50% diameter reduction from plaque in the ICA. The ECA PSV is 78 cm/s. There is antegrade flow in the left vertebral artery. IMPRESSION: 1. <50% stenosis in the right internal carotid artery. 2. <50% stenosis in the left internal carotid artery. Reviewed, dictated and finalized at location A.
== END 2021-11-04 09:04 | disposition home or self-care (01) ==
PROVIDERS: PCP Family Medicine; Visit Provider Physician Assistant Medical
DX: R42 Dizziness and giddiness (principal); R55 Syncope and collapse; I65.23 Occlusion and stenosis of bilateral carotid arteries
CPT/HCPCS: 93880

== ENCOUNTER 2021-11-18 08:03 | Outpatient (CLI) | payer OTHER, SELFPAY ==
--- NOTE | ~2021-11-18 | XR_ITS ---
XR lumbar spine 2-3V 11/18/2021 08:32 Indication: Back pain Procedure: 3 views lumbar spine Comparison: 10/20/2020 Findings: There is disc narrowing and endplate degenerative change at all lumbar levels. There is gra de 1 degenerative spondylolisthesis at L4-5. There is multilevel facet hypertrophy extending inferior ly from L3-4 through L5-S1. There is mild levocurvature of the thoracolumbar spine centered at L1-2. Sacral foramen are symmetric. Impression: 1: Moderate-severe lumbar spondylosis. Reviewed, dictated and finalized at location D. Impression: 1: Moderate-severe lumbar spondylosis.
--- NOTE | ~2021-11-18 | XR_ITS ---
EXAMINATION: XR thoracic spine 2V DATE: 11/18/2021 08:32 INDICATION: Dorsalgia. TECHNIQUE: 2 views of the thoracic spine on 4 radiographs were obtained. COMPARISON: None. FINDINGS: There is 3 degrees dextrocurvature of thoracic spine. Vertebral body heights are normal in thoracic spine. There is mildly decreased disc height at multiple levels in mid and lower thoracic sp ine. There are endplate osteophytes at most levels. IMPRESSION: 1. Mild thoracic spondylosis. Reviewed, dictated and finalized at location A.
== END 2021-11-18 08:04 | disposition home or self-care (01) ==
LOC: ANHIMG 08:06
PROVIDERS: PCP Family Medicine; Visit Provider Family Medicine
DX: M54.2 Cervicalgia (principal); M54.9 Dorsalgia, unspecified; M47.814 Spondylosis without myelopathy or radiculopathy, thoracic region; M47.816 Spondylosis without myelopathy or radiculopathy, lumbar region
CPT/HCPCS: 72070; 72100

== ENCOUNTER 2022-05-09 08:02 | Outpatient (CLI) | payer MEDICARE, MEDICAID, SELFPAY ==
--- NOTE | ~2022-05-09 | MR_ITS ---
EXAMINATION: MR cervical spine wo/w con DATE: 05/09/2022 09:16 INDICATION: Cervical myelopathy. TECHNIQUE: Magnetic resonance imaging (MRI) of the cervical spine was performed without and with 20 m L MultiHance intravenous contrast. COMPARISON: None FINDINGS: There is kyphosis of cervical spine. There is mild chronic anterior wedging of C5 and C6 ve rtebral bodies. There is 2 mm anterolisthesis of C7 on T1. There is moderately decreased disc height at C4-C5 and severely decreased disc height at C5-C6 and C6-C7. There is increased T2-weighted signal intensity in the spinal cord at C3-C4, C4-C5, and C5-C6. The following disc levels are specifically discussed: C2-C3: There is a central extrusion. There is no uncovertebral joint osteoarthritis. There is severe right and mild left facet joint osteoarthritis. There is mild right neural foraminal stenosis. There is mild central canal stenosis. C3-C4: The disc is bulging. There is severe bilateral uncovertebral joint osteoarthritis. There is se juwan bilateral facet joint osteoarthritis. There is severe bilateral neural foraminal stenosis. There is moderate central canal stenosis with ventral and dorsal indentation of the spinal cord. C4-C5: The disc is bulging. There is severe bilateral uncovertebral joint osteoarthritis. There is se juwan bilateral facet joint osteoarthritis. There is severe bilateral neural foraminal stenosis. There is moderate central canal stenosis with ventral and dorsal indentation of the spinal cord. C5-C6: The disc is bulging. There is severe bilateral uncovertebral joint osteoarthritis. There is mo derate right and mild left facet joint osteoarthritis. There is severe right and moderate left neural foraminal stenosis. There is mild central canal stenosis. C6-C7: The disc is bulging. There is severe bilateral uncovertebral joint osteoarthritis. There is mo derate right and severe left facet joint osteoarthritis. There is mild right and moderate left neural foraminal stenosis. There is mild central canal stenosis. C7-T1: There is a central extrusion. There is mild bilateral uncovertebral joint osteoarthritis. Ther e is severe bilateral facet joint osteoarthritis. There is mild bilateral neural foraminal stenosis. There is mild central canal stenosis. IMPRESSION: 1. Myelomalacia at C3-C4, C4-C5, and C5-C6. 2. Severe cervical spondylosis. Reviewed, dictated and finalized at location A. CAL STAFF PHYSICIAN
== END 2022-05-09 08:03 | disposition home or self-care (01) ==
LOC: ANHIMG 08:08
PROVIDERS: PCP Family Medicine; Visit Provider Psychiatry & Neurology Neurology
DX: G95.89 Other specified diseases of spinal cord (principal); M43.02 Spondylolysis, cervical region
CPT/HCPCS: 72156; A9577

== ENCOUNTER 2022-05-25 21:09 | Observation (INO) | payer MEDICARE, MEDICAID, SELFPAY ==
[2022-05-25] VITALS (7 sets, daily range): BP systolic 133; BP diastolic 92; PULSE 84–100; RESP 16–20; TEMP 36.6; O2SAT 95–99
--- NOTE | ~2022-05-25 | XR_ITS ---
EXAMINATION: XR chest 1V portable DATE: 05/25/2022 21:30 INDICATION: Cough TECHNIQUE: frontal view of the chest was obtained. COMPARISON: Chest radiograph dated 09/05/2021 FINDINGS: The lungs remain clear with no focal airspace opacities, pulmonary edema, pleural effusion or pneumot horax. The cardiomediastinal silhouette is normal. Visualized bones and soft tissues are unremarkable . IMPRESSION: 1. No acute cardiopulmonary disease. Reviewed, dictated and finalized at location A. [facility]
--- NOTE | 2022-05-25 21:12 | ECG_ITS ---
Measurements Intervals [place] Rate: 86 P: 71 NM: 143 QRS: 65 QRSD: 111 T: 47 QT: 375 QTc: 449 Interpretive Statements SINUS RHYTHM WITH SINUS ARRHYTHMIA INTRAVENTRICULAR CONDUCTION DELAY BASELINE ARTIFACT- I, I, AVR, AVL BORDERLINE ECG COMPARED TO ECG 09/05/2021 12:27:57 SINUS ARRHYTHMIA NOW PRESENT INTRAVENTRICULAR CONDUCTION DELAY NOW PRESENT Electronically Signed On 05-26-2022 9:38:28 SEARCH DEVELOPER by Rashaad Greenwood D.O.
--- NOTE | 2022-05-25 21:18 | ED.GENADULT ---
HPI - General Adult General Chief complaint: Shortness of Breath/Dyspnea Stated complaint: SOB, COUGH Source: RN notes reviewed History of Present Illness HPI narrative: Patient presents emergency department from home via EMS for shortness of breath. Patient dates he began to feel ill 3 days ago. States he has had a cough this been productive of yellow sputum as well as rhinorrhea he states he has had no measured fever states he did have 1 episode of nausea but had no vomiting patient states this evening became more short of breath and EMS was called EMS arrived the patient had an O2 saturation in the 80s on room air placed on 2 L nasal cannula he was also given a breathing treatment and Solu-Medrol to 120 mg. Patient states he does smoke approximately 1 pack/day has a history of previous lobectomy he denies any chest pain denies any abdominal pain Related Data Home Medications Medication Instructions Recorded Confirmed aspirin 81 mg tablet,delayed 81 mg PO DAILY 08/20/19 10/19/21 release naproxen sodium 220 mg tablet 220 mg PO TID PRN 04/25/22 (Aleve) Allergies Allergy/AdvReac Type Severity Reaction Status Date / Time amlodipine Allergy Unknown syncope Verified 04/25/22 13:43 Review of Systems Review of Systems: Gen.: Denies fevers or chills Eyes: Denies eye pain or visual change ENT: Reports rhinorrhea Respiratory: See HPI CV: Denies chest pain or palpitations GI: Denies abdominal pain emesis or diarrhea, reports nausea Musculoskeletal: Denies back pain or muscle pain Neuro: Denies numbness, tingling, weakness or focal weakness Skin: Denies rash Except as documented, all other systems reviewed and negative [facility] Past Medical History Medical History Essential (primary) hypertension Mixed hyperlipidemia Obesity (BMI 30.0-34.9) Sleep apnea, unspecified Family History Family History Father Family history of Alzheimer's disease Malignant neoplasm of prostate Mother Family history of pancreatic cancer Diabetes mellitus Sibling Malignant neoplasm of prostate Cerebrovascular accident Social History Social History Social History: Caffeine-daily Smoking packs per day: 1.5 Smoking cigarettes per day: 30.0 Years smoked: 50 Smoking pack-years: 75.00 Smoking status: Current every day smoker Second hand tobacco smoke exposure: No Alcohol intake: former Drinks per week: 1 Substance use: current Substance use type: marijuana Lack of Transportation: No Lack of Food: Never True Current Housing: I Have Housing Concerned About Future Housing: No Difficulty Paying Gas/Electric Bills: No Difficulty Paying for Meds: No Currently Unemployed: No Education: High School Diploma/GED Difficulty w/ Childcare or Family Care: No Gender identity (if verbalized by the patient): Male Spiritual care concerns: No Agree to blood products: Yes Exam Narrative: APPEARANCE: No acute distress, nontoxic, resting in bed EYES: EOMI HEENT: Normocephalic, atraumatic, OMM no erythema exudate posterior pharynx RESPIRATORY: No respiratory distress , wheezing throughout the bilateral lung thompson with decreased breath sounds in the bases no rhonchi CARDIOVASCULAR: Regular rate and rhythm without murmurs rubs or gallops. ABDOMINAL: Soft, nontender, nondistended, no rebound or guarding MUSCULOSKELETAl: Moves all extremities. No clubbing, cyanosis or edema. NEURO: Awake and alert. Following commands, speech normal, no focal deficits SKIN:: Warm, dry. No rashes lesions or abrasions PSYCHIATRIC: Normal affect/mood, Course Course Emergency Course: Discussed with Dr. King presentation work-up agrees with admission Discussed with patient and family results of workup and diagnosis. Discussed need for admission. Patient and
[2022-05-25] MEDS: IPRATROPIUM BR 0.02% INH SOLN 0.5 MG/2.5 ML VIAL INHALATION (23:57)
[2022-05-25] MEDS: ALBUTEROL SULFATE NEB 2.5 MG/3 ML INH 5 MG INHALATION (23:58)
[2022-05-26] VITALS (13 sets, daily range): BP systolic 115–134; BP diastolic 61–97; PULSE 76–100; RESP 15–20; TEMP 35.9–36.2; O2SAT 92–100; BMI 33.4
[2022-05-26 00:09] LABS: Basophils Percent Auto 0.5 % (0.2-1.2); Eosinophils Absolute Auto 0.1 K/mm3 (0-0.3); Eosinophils Percent Auto 1.2 % (0-4.4); Hematocrit 45.7 % (42.0-52.0); Hemoglobin 15.4 g/dL (14.0-18.0); Immature Granulocyte Absolute 0.02 K/mm3 (0.00-0.031); Immature Granulocyte Percent A 0.4 % (0-0.5); Lymphocytes Percent Auto 10.5 % (18.3-44.2); Mean Corpuscular HGB Conc 33.7 g/dl (32-36); Mean Corpuscular Hemoglobin 32.4 pg (26-34); Mean Platelet Volume 11.6 fl (7.4-10.4); Monocytes Absolute Auto 0.2 K/mm3 (0.1-0.6); Neutrophils Absolute Auto 4.8 K/mm3 (1.3-6.7); Neutrophils Percent Auto 84.4 % (45.5-73.1); Platelet Count Result 145 k/mm3 (150-375); Red Blood Count 4.76 M/mm3 (4.6-6.20); Red Cell Distribution Width 12.3 % (11.5-14.5); White Blood Count 5.7 K/mm3 (4.5-10.0)
[2022-05-26 00:20] LABS: Lactic Acid Reflex 1.3 mmol/L (0.7-2.0)
[2022-05-26 00:21] LABS: Prothrombin Time 13.1 Seconds (11.1-14.7)
[2022-05-26 00:22] LABS: Alanine Aminotransferase 57 U/L (6-50); Albumin Level 4.4 g/dL (3.5-5.1); Alkaline Phosphatase 66 U/L (38-126); Anion Gap 12 mmol/L (8-16); Aspartate Amino Transferase 51 U/L (17-59); Bilirubin,Total 0.5 mg/dL (0.2-1.3); Blood Urea Nitrogen 17 mg/dL (9-20); Calcium 9.1 mg/dL (8.4-10.2); Carbon Dioxide 29 mmol/L (22-30); Chloride 99 mmol/L (98-107); Estimated CRCL calculation 88 ml/min; Estimated Glomerular Filt Rate > 60; Glucose 137 mg/dL (65-110); Potassium 3.5 mmol/L (3.4-5.0); Sodium 140 mmol/L (137-145)
[2022-05-26 00:32] LABS: NT Pro B Type Natriuretic Pept 29 pg/mL (5-100); Troponin I < 0.012 ng/mL (0.000-0.034)
[2022-05-26 00:34] LABS: Influenza A QL RT-PCR Positive (Negative); Influenza B QL RT-PCR Negative (Negative); RSV RNA, RT-PCR Negative (Negative); SARS-CoV-2 RNA PCR Negative
--- NOTE | 2022-05-26 00:43 | PC.NURSE ---
Patient took his O2 off and was breathing room air stating he was feeling better, but patient O2 sat was only 88%. Patient placed back on 2L NC and MD made aware
[2022-05-26] MEDS: OSELTAMIVIR PHOSPHATE 75 MG CAPSULE PO ×2 (02:06→08:11)
[2022-05-26] MEDS: IPRATROPIUM BR 0.02% INH SOLN 0.5 MG/2.5 ML VIAL INHALATION (02:10)
[2022-05-26] MEDS: ALBUTEROL SULFATE NEB 2.5 MG/3 ML INH 5 MG INHALATION (02:10)
[2022-05-26] MEDS: methylPREDNISolone SOD SUCC 125 MG VIAL 60 MG IV PUSH (06:19)
--- NOTE | 2022-05-26 09:45 | PM.IMHP ---
H&P: HPI History of Present Illness Date/Time: 05/26/22 09:45 Chief Complaint: shortness of breath Review of Systems Review of Systems: Gen.: Denies fevers or chills Eyes: Denies eye pain or visual change ENT: Reports rhinorrhea Respiratory: See HPI CV: Denies chest pain or palpitations GI: Denies abdominal pain emesis or diarrhea, reports nausea Musculoskeletal: Denies back pain or muscle pain Neuro: Denies numbness, tingling, weakness or focal weakness Skin: Denies rash Except as documented, all other systems reviewed and negative [facility] Past Medical History Medical History Essential (primary) hypertension Mixed hyperlipidemia Obesity (BMI 30.0-34.9) Sleep apnea, unspecified Family History Family History Father Family history of Alzheimer's disease Malignant neoplasm of prostate Mother Family history of pancreatic cancer Diabetes mellitus Sibling Malignant neoplasm of prostate Cerebrovascular accident Social History Social History Social History: Caffeine-daily Smoking packs per day: 1 Smoking cigarettes per day: 20.0 Years smoked: 50 Smoking pack-years: 50.00 Smoking status: Current every day smoker Tobacco type: cigarettes Second hand tobacco smoke exposure: No Alcohol intake: never Drinks per week: 1 Substance use: current Substance use type: marijuana Last use: 05/20/2022 Lack of Transportation: No Lack of Food: Never True Current Housing: I Have Housing Concerned About Future Housing: No Difficulty Paying Gas/Electric Bills: No Difficulty Paying for Meds: No Currently Unemployed: No Education: High School Diploma/GED Difficulty w/ Childcare or Family Care: No Gender identity (if verbalized by the patient): Male Spiritual care concerns: No Agree to blood products: Yes Meds Home Medications and Allergies Home Medications Medication Instructions Recorded Confirmed Type aspirin 81 mg tablet,delayed 81 mg PO DAILY 08/20/19 05/26/22 History release triamterene 37.5 1 cap PO HS #90 caps 12/12/21 05/26/22 Rx mg-hydrochlorothiazide 25 mg capsule metoprolol succinate 50 mg 50 mg PO DAILY #90 tabs 03/07/22 05/26/22 Rx tablet,extended release 24 hr lisinopril 40 mg tablet 40 mg PO HS #90 tabs 04/12/22 05/26/22 Rx naproxen sodium 220 mg tablet 220 mg PO TID PRN arthritis pain 04/25/22 05/26/22 History (Aleve) gabapentin 300 mg capsule 300 mg PO BID #60 caps 05/11/22 05/26/22 Rx albuterol sulfate 90 mcg/actuation 1 inh inhalation QID #8.5 grams 05/26/22 Rx aerosol inhaler (Proventil HFA) oseltamivir 75 mg capsule (Tamiflu) 75 mg PO Q12HR 4 days #8 caps 05/26/22 Rx Allergies Allergy/AdvReac Type Severity Reaction Status Date / Time amlodipine Allergy Unknown syncope Verified 04/25/22 13:43 Vital Signs Vital Signs - 24 hr 05/25/22 21:05 05/25/22 21:22 05/25/22 22:00 Temperature 98 F Pulse Rate 98 100 85 Respiratory Rate 18 16 20 Blood Pressure 133/92 H Pulse Oximetry 99 98 95 Oxygen Delivery Nasal Cannula Oxygen Flow Rate 2 05/25/22 22:21 05/25/22 22:30 05/25/22 23:15 Temperature Pulse Rate 84 92 87 Respiratory Rate 17 18 Blood Pressure Pulse Oximetry 96 96 Oxygen Delivery Oxygen Flow Rate 05/25/22 23:50 05/26/22 00:07 05/26/22 02:17 Temperature Pulse Rate 85 78 Respiratory Rate 17 18 Blood Pressure Pulse Oximetry 98 98 Oxygen Delivery Nasal Cannula Nasal Cannula Oxygen Flow Rate 2 3 05/26/22 00:06 05/26/22 00:15 05/26/22 00:31 Temperature Pulse Rate 78 82 Respiratory Rate 15 Blood Pressure Pulse Oximetry 100 100 93 Oxygen Delivery Oxygen Flow Rate 05/26/22 01:04 05/26/22 01:48 05/26/22 02:00 Temperature Pulse Rate 94 91 Respiratory Rate 19 15
== END 2022-05-26 10:05 | disposition home or self-care (01) ==
LOC: ANHED 05-26 01:49 → ANH2MED 05-26 02:15
PROVIDERS: Admitting Provider Hospitalist; Emergency Provider Emergency Medicine; PCP Family Medicine; Visit Provider Hospitalist
DX: J10.1 Influenza due to other identified influenza virus with other respiratory manifestations (principal); J44.1 Chronic obstructive pulmonary disease with (acute) exacerbation; J96.01 Acute respiratory failure with hypoxia; G95.9 Disease of spinal cord, unspecified; Z71.6 Tobacco abuse counseling; I49.8 Other specified cardiac arrhythmias; I45.4 Nonspecific intraventricular block; Z20.822 Contact with and (suspected) exposure to COVID-19; J34.89 Other specified disorders of nose and nasal sinuses; F17.210 Nicotine dependence, cigarettes, uncomplicated; F12.90 Cannabis use, unspecified, uncomplicated; Z90.2 Acquired absence of lung [part of]; I10 Essential (primary) hypertension; E78.2 Mixed hyperlipidemia; G47.30 Sleep apnea, unspecified; E66.9 Obesity, unspecified; Z68.33 Body mass index [BMI] 33.0-33.9, adult; Z79.82 Long term (current) use of aspirin; Z79.1 Long term (current) use of non-steroidal anti-inflammatories (NSAID); Z79.51 Long term (current) use of inhaled steroids; Z79.899 Other long term (current) drug therapy
CPT/HCPCS: 36415; 71045; 80053; 83605; 83880; 84484; 85025; 85610; 85730; 87040; 87637; 93005; 94640; 96374; 99285; A9270; G0378; J2930

== ENCOUNTER 2022-07-07 06:36 | Outpatient (CLI) | payer MEDICARE, MEDICAID, SELFPAY ==
--- NOTE | ~2022-07-07 | XR_ITS ---
Lumbosacral Spine: AP and lateral views, neutral, flexion, extension positioning Clinical History: Pain COMPARISON: 11/18/2021 Findings: Minimal levoscoliosis again noted.. No fracture identified. 4-5 mm anterolisthesis of L4 ov er L5 noted. No instability evident on flexion or extension views. Diffuse facet joint degenerative c hanges are again present. Moderate degenerative disc narrowing is present throughout the lumbar spine . The sacroiliac joints are normally outlined. Impression: Overall, no change from prior exam. Degenerative spondylosis, as detailed above. 4-5 mm anterolisthesis of L4 over L5, with no evidence for instability. Reviewed, dictated and finalized at location . TRAFFIC CONTROLLER Impression: Overall, no change from prior exam. Degenerative spondylosis, as detailed above . 4-5 mm anterolisthesis of L4 over L5, with no evidence for instability.
--- NOTE | ~2022-07-07 | MR_ITS ---
MRI of the lumbar spine Clinical History: Right sciatica Technique: Axial T2-weighted images, and sagittal T1-weighted, T2-weighted, and T2 fat-sat images wer e acquired. Findings: No fracture or subluxation seen in the lumbar spine. Vertebral bodies maintain normal heigh t and alignment. No suspicious bone marrow signal abnormality identified. At L1-L2, disc bulge and mild facet arthropathy result in mild to moderate thecal sac compression. Th ere is moderate to advanced right neural foraminal narrowing and [id number] left neural foramin al narrowing. At L2-L3, disc bulge and facet arthropathy result in moderate to severe thecal sac compression. There is moderate bilateral neural foraminal narrowing. At L3-L4, disc bulge and facet arthropathy result in severe thecal sac compression. There is advanced bilateral neural foraminal compromise. At L4-L5, disc bulge and facet arthropathy result in severe thecal sac compression/spinal canal steno sis. There is severe bilateral neural foraminal compromise. At L5-S1, disc bulge and facet arthropathy are present. There is probable minimal central canal steno sis. There is minimal bilateral neural foraminal narrowing. There is an apparent somewhat saccular aneurysm of the distal abdominal aorta measuring up to 6 cm in AP dimension. The vertebral soft tissues otherwise are unremarkable. Impression: Severe degenerative spondylosis, as detailed above. There is severe thecal sac compression/spinal can al stenosis at L2-L3, L3-L4, and L4-L5. There is multilevel neural foraminal narrowing, as detailed a debby. Somewhat saccular aneurysm of the distal abdominal aorta measuring up to 6 cm in diameter. No prior i maging exams of the abdominal aorta are available at this institution. If this aneurysm is previously unknown or not previously evaluated, then additional dedicated workup and evaluation for possible tr eatment is recommended. Reviewed, dictated and finalized at location . QUALITY ASSURANCE ENGINEER Impression: Severe degenerative spondylosis, as detailed above. There is severe thecal sac compression/spinal canal stenosis at L2-L3, L3-L4, and L4-L5. There is multilev el neural foraminal narrowing, as detailed above. Somewhat saccular aneurysm of the distal abdominal aorta measuring up to 6 cm i n diameter. No prior imaging exams of the abdominal aorta are available at this institution. If this aneurysm is previously unknown or not previously evaluate d, then additional dedicated workup and evaluation for possible treatment is re commended.
== END 2022-07-07 06:37 | disposition home or self-care (01) ==
PROVIDERS: PCP Family Medicine; Visit Provider Family Medicine
DX: M54.9 Dorsalgia, unspecified (principal); M62.81 Muscle weakness (generalized); M54.17 Radiculopathy, lumbosacral region; M47.9 Spondylosis, unspecified; R27.0 Ataxia, unspecified; M43.06 Spondylolysis, lumbar region; M48.061 Spinal stenosis, lumbar region without neurogenic claudication; I71.40 Abdominal aortic aneurysm, without rupture, unspecified
CPT/HCPCS: 72110; 72148

== ENCOUNTER 2022-10-13 08:49 | Outpatient (CLI) | payer MEDICARE, MEDICAID, SELFPAY ==
[2022-10-13 07:13] LABS: Basophils Absolute Auto 0.1 K/mm3 (0.0-0.1); Basophils Percent Auto 1.1 % (0.2-1.2); Eosinophils Absolute Auto 0.3 K/mm3 (0-0.3); Eosinophils Percent Auto 4.4 % (0-4.4); Hematocrit 46.2 % (42.0-52.0); Hemoglobin 15.6 g/dL (14.0-18.0); Immature Granulocyte Absolute 0.01 K/mm3 (0.00-0.031); Immature Granulocyte Percent A 0.1 % (0-0.5); Lymphocytes Percent Auto 36.6 % (18.3-44.2); Mean Corpuscular HGB Conc 33.8 g/dl (32-36); Mean Corpuscular Hemoglobin 32.3 pg (26-34); Mean Corpuscular Volume 95.7 fl (80-100); Mean Platelet Volume 11.4 fl (7.4-10.4); Monocytes Absolute Auto 0.5 K/mm3 (0.1-0.6); Monocytes Percent Auto 7.3 % (2.6-8.5); Neutrophils Absolute Auto 3.6 K/mm3 (1.3-6.7); Neutrophils Percent Auto 50.5 % (45.5-73.1); Platelet Count Result 166 k/mm3 (150-375); Red Blood Count 4.83 M/mm3 (4.6-6.20); Red Cell Distribution Width 12.7 % (11.5-14.5); White Blood Count 7.1 K/mm3 (4.5-10.0)
[2022-10-13 07:20] LABS: Partial Thromboplastin Time 31.1 SECONDS (22.3-36.8); Prothrombin Time 13.2 Seconds (11.1-14.7)
[2022-10-13 07:25] LABS: Anion Gap 5 mmol/L (8-16); Blood Urea Nitrogen 37 mg/dL (9-20); Calcium 9.1 mg/dL (8.4-10.2); Carbon Dioxide 36 mmol/L (22-30); Chloride 99 mmol/L (98-107); Estimated Glomerular Filt Rate 55; Glucose 128 mg/dL (65-110); Potassium 3.7 mmol/L (3.4-5.0); Sodium 140 mmol/L (137-145)
[2022-10-13 07:36] LABS: Appearance Urine Clear (Clear); Bilirubin Urine Negative (Negative); Blood Urine Negative (Negative); Color Urine Yellow (Yellow); Glucose Urine UA Negative (Negative); Ketones Urine Negative (Negative); Leukocyte Esterase Ur Negative LEU/UL (Negative); Nitrate Urine Negative (Negative); Protein Urine Negative (Negative); Specific Grav Ur 1.019 (1.001-1.035)
[2022-10-13 07:41] LABS: Add Urine Microscopic? NO
--- NOTE | 2022-10-13 07:42 | ECG_ITS ---
Measurements Intervals [place] Rate: 66 P: 69 ND: 166 QRS: 75 QRSD: 96 T: 71 QT: 399 QTc: 418 Interpretive Statements SINUS RHYTHM NORMAL ECG COMPARED TO ECG 05/25/2022 21:16:12 NO SIGNIFICANT CHANGES Electronically Signed On 10-13-2022 16:44:18 CDT by Joseph Arredondo M.D.
== END 2022-10-13 08:50 | disposition home or self-care (01) ==
PROVIDERS: PCP Family Medicine; Visit Provider Neurological Surgery
DX: Z01.818 Encounter for other preprocedural examination (principal); I10 Essential (primary) hypertension; G95.9 Disease of spinal cord, unspecified; R07.9 Chest pain, unspecified; Z79.01 Long term (current) use of anticoagulants
CPT/HCPCS: 36415; 80048; 81003; 85025; 85610; 85730; 86850; 86900; 86901; 93005

== ENCOUNTER 2022-10-23 12:20 | Outpatient (CLI) | payer MEDICARE, MEDICAID, SELFPAY | END 2022-10-23 12:21 | disposition home or self-care (01) | LOC: ANHSURGERY 12:25 | PROVIDERS: PCP Family Medicine; Visit Provider Neurological Surgery | DX: G95.9 Disease of spinal cord, unspecified (principal) | CPT/HCPCS: 36415; 86850; 86900; 86901 ==

== ENCOUNTER 2022-10-27 12:33 | Inpatient (IN) | payer MEDICARE, MEDICAID, SELFPAY ==
--- NOTE | 2022-10-20 15:33 | PC.NURSE ---
Report to the Outpatient Waiting Room, entrance under the green pavilion located off [facility], at time _0600 on date _10/27/22 . Planned Procedure Time: __0730 . Time changes happen often and if your time is changed the preop area will call you the afternoon before. - You and your visitor will be asked to self-screen and do not enter if you have any COVID symptoms. - A mask is optional within the hospital at this time. Patients may have clear liquids (water, carbonated beverages, clear teas, apple juice) until 3 hours prior to surgery with a maximum of 20 ounces. - No food from midnight until time of surgery - Infants may have breast milk until 4 hours before surgery, infant formula 6 hours prior to surgery. - Children will be allowed to drink immediately following surgery. If applicable, please bring a bottle or sippy cup to assist with drinking. Juice, water, soda, and popsicles are readily available. For infants on formula, please bring formula the day of surgery. Pacifiers are allowed. Take the following medications with a SIP of water the morning of surgery: ____INHALER IF NEEDED DO NOT STOP ANY OF YOUR OTHER PRESCRIPTION MEDICATIONS PRIOR TO SURGERY ?EXCEPT THE FOLLOWING Medications to discontinue per physician __PT STATES ___ASPIRIN 7 DAYS PRE OP PER DR MCLAUGHLIN . LAST DOSE 10/19/22 Please no make-up, nail panamanian, hairspray, perfume, deodorant, or body powder the day of surgery. No jewelry (including any body piercings) or valuables the day of surgery, leave them at home. Please take a shower or bath the night before, or the morning of, surgery with an antibacterial soap. Wear comfortable, loose fitting clothing. Children are encouraged to wear pajamas. - Jewelry must be removed prior to entering the operating room. Rings and piercings that are not removed may be cut off. - The hospital will not accept responsibility for valuables. - Please leave all valuables, including medications, at home the day of surgery. If you are going home after surgery, a licensed wheelchair van driver must drive you home. - NO public transportation without another adult if you receive anesthesia. - We recommend that an adult stay with you for 24 hours following discharge. - We also recommend that you do not drive, make important decision, drink alcoholic beverages, or take any drugs that were not prescribed by your health care provider for at least 24 hours after your discharge time. For Pediatric surgeries, we recommend two adults accompany the child home. Follow any additional instructions given to you from your surgeon. If you or anyone in your household have experienced Covid symptoms in the past week, please notify your surgeon or the nurse liaison at the phone number below for possible testing. Telephone instructions given to __PATIENT and asked if any additional questions and then verbalized understanding. Patient advised to call surgeon office or pre surgery nurse liaison [phone] if any additional questions.
[2022-10-20 15:44] VITALS: BMI 33.0
--- NOTE | 2022-10-26 12:51 | WPDANESEPPF ---
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 Patient Data Age: 67 Gender: M Height: 1.78 m Weight: 104.4 kg Allergies Allergy/AdvReac Type Severity Reaction Status Date / Time amlodipine Allergy Unknown syncope Verified 10/20/22 15:18 Home Medications Medication Instructions Recorded Confirmed Type aspirin 81 mg tablet,delayed 81 mg PO DAILY 08/20/19 10/20/22 History release triamterene 37.5 1 cap PO HS #90 caps 12/12/21 10/20/22 Rx mg-hydrochlorothiazide 25 mg capsule lisinopril 40 mg tablet 40 mg PO HS #90 tabs 04/12/22 10/20/22 Rx naproxen sodium 220 mg tablet 220 mg PO TID PRN arthritis pain 04/25/22 10/20/22 History (Aleve) acetaminophen 500 mg capsule 500 mg PO PRN PRN Pain 06/14/22 10/20/22 History albuterol sulfate 90 mcg/actuation 1 inh inhalation PRN PRN Shortness 10/20/22 10/20/22 History aerosol inhaler (Proventil HFA) Of Breath metoprolol succinate 50 mg 50 mg PO HS 10/20/22 10/20/22 History tablet,extended release 24 hr rosuvastatin 20 mg tablet 20 mg PO HS 10/20/22 10/20/22 History Patient hx anesthesia problems: none Family hx anesthesia problems: none Results Review: All pre-operative results and documents have been reviewed as part of the pre-operative evaluation. [facility] Past Medical History Medical History (Updated 10/26/22 @ 12:52 by Pantera Valdez DO) COPD (chronic obstructive pulmonary disease) Essential (primary) hypertension Lumbar spondylosis Mixed hyperlipidemia Obesity (BMI 30.0-34.9) Sleep apnea, unspecified Surgical History Surgical History (Updated 10/26/22 @ 12:52 by Pantera Valdez DO) History of coronary artery stent placement [id number] S/P AAA (abdominal aortic aneurysm) repair Family History Family History Father Family history of Alzheimer's disease Malignant neoplasm of prostate Mother Family history of pancreatic cancer Diabetes mellitus Sibling Malignant neoplasm of prostate Cerebrovascular accident Social History Social History Social History: Caffeine-daily Smoking packs per day: 1 Smoking cigarettes per day: 20.0 Years smoked: 50 Smoking pack-years: 50.00 Smoking status: Current every day smoker Tobacco type: cigarettes Second hand tobacco smoke exposure: No Alcohol intake: never Drinks per week: 1 Substance use: current Substance use type: marijuana Last use: 10/19/22 Lack of Transportation: No Lack of Food: Never True Current Housing: I Have Housing Concerned About Future Housing: No Difficulty Paying Gas/Electric Bills: No Difficulty Paying for Meds: No Currently Unemployed: No Education: High School Diploma/GED Difficulty w/ Childcare or Family Care: No Living arrangements: with family Occupation/Education: retired Gender identity (if verbalized by the patient): Male Spiritual care concerns: No Agree to blood products: Yes Anes - Eval Final PreProcedure Day of Procedure 10/26/22 12:51 Patient weight: obese Heart: regular rate and rhythm Lungs: clear to auscultation Airway: Mallampati scale class II and special considerations poor dentition Neurological: alert and oriented Last oral intake: >/= 8 hours ASA classification: III Emergent: no Anesthetic plan: proceed Anesthesia type and monitoring: general ETT and standard monitoring Results Review: All pre-operative results and documents have been reviewed as part of the pre-operative evaluation. Informed Consent: The patient's anesthetic plan and its attendant risks and benefits were discussed with the patient/family/POA. Que
[2022-10-27] VITALS (14 sets, daily range): BP systolic 115–144; BP diastolic 79–96; PULSE 70–96; RESP 10–22; TEMP 35.8–37.1; O2SAT 93–100; BMI 33.2
--- NOTE | ~2022-10-27 | XR_ITS ---
EXAMINATION: XR fluoroscopy no charge DATE: 10/27/2022 10:31 INDICATION: Posterior cervical decompression and fusion TECHNIQUE: Single lateral fluoroscopic spot image of the cervical spine was obtained during procedure performed by Dr. Peters. Radiologist was not present for the imaging or procedure. The amount of fluo roscopy time used during this procedure was 0.1 minutes. COMPARISON: None. FINDINGS: Tissue retractors project over the soft tissues posterior to the mid cervical spine. Suggestion of po ssible C3 and C4 laminectomies however assessment is technically limited by overpenetration. Vertical carmella and lateral mass screws at C3, C4 and likely C5 for instrumented posterior spinal fusion. Verteb ral body and disc heights and C4 and more cephalad are normal. C5 vertebral body is obscured due to u nderpenetration. Endotracheal tube in expected position. Prevertebral soft tissues are unremarkable. IMPRESSION: 1. Fluoroscopy utilized during a cervical spine neurosurgical procedure. See procedure note for furth er detail. Reviewed, dictated and finalized at location A. IMPRESSION: 1. Fluoroscopy utilized during a cervical spine neurosurgical procedure. See pr ocedure note for further detail.
[2022-10-27] MEDS: LACTATED RINGERS 1,000 ML 30 ML IV CONT (07:05)
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
--- NOTE | 2022-10-27 07:31 | WPDHPUPDATE1 ---
History and Physical Update Update Date/Time: 10/27/22 07:31 History and Physical has been reviewed, including an updated exam of the patient. There are NO changes in the patient's condition. Risks, benefits, and alternatives have been discussed and questions answered. Patient agrees to proceed with procedure.
[2022-10-27] MEDS: ceFAZolin 2 GM/D5W 50 ML 2 GM/50 ML BAG IVPB (07:42)
[2022-10-27] MEDS: LIDO 1%/EPINEPHRINE 1:100,000 50 ML VIAL 10 ML INFILTRATE (08:44)
[2022-10-27] MEDS: VANCOMYCIN HCL 1,000 MG VIAL 1000 MG TOPICAL (10:01)
--- NOTE | 2022-10-27 10:22 | W.PM.PROC2 ---
Procedure Note - Detailed Date of Procedure 10/27/22 Pre-op Diagnosis Cerv Stenosis with Myelopathy Post-op Diagnosis Same Procedure Performed posterior cervical decompression and fusion C3-4 through C6-7 Surgeon Aneta Peters MD Anesthesia General Indications Rodney Kramer is a very pleasant? 67 year old? male who presents at the request of Dr. Yanez with signs and symptoms of gait difficulties, progressive difficulties with dexterity, and symptoms that sound like Lhermitte's phenomena in the setting of? cervical stenosis present from C3 through C6 with cord signal change on imaging.? Rodney has tried treatments that include NSAIDs, gabapentin, chiropractic treatment, TENS, and acupuncture. In the office today the most concerning symptom to the patient is that his balance is progressively limited, his ability to use his hands particularly is dominant left hand, is impaired, and he is frustrated about his neurological decline.? He is also frustrated by progressive proximal right upper extremity weakness, with signficant objective weakness on examination.? The patient and I have had an extended discussion in the office regarding the options for management of these clinical symptoms and radiographic findings. We have discussed the option of physical therapy or interventional pain management strategies including ELBERT or ablative procedures. In this case we have more specifically discussed that in the setting of cervical stenosis with cervical myelopathic symptoms, and especially with progression over the past four months that in such situations we typically recommend surgical intervention over non surgical measures. Finally, we have generally discussed the option of surgery. In the absence of functional deficits, I have explained that my preference is to exhaust non surgical options prior to consideration of surgery. However, in the setting of cervical myelopathic symptoms with cervical stenosis on imaging, we have discussed that it would be reasonable and appropriate to consider surgical intervention.? We have discussed both anterior and posterior approaches to the cervical spine.? In this case we have discussed that surgery would likely entail a posterior cervical decompression and, in this setting of a loss of the normal cervical lordosis, adjunctive instrumented fusion, from C3-4 through C6-7. I have explained that surgery will entail a posterior cervical decompression and fusion from C3-4 through C6-7. I have explained the indications for surgery as well as the risks, including but not limited to bleeding, infection, CSF leak, numbness, weakness, paralysis, stroke, coma, even . We have discussed the risk of pseudarthrosis, hardware failure, adjacent level disease, and even the need for further surgery. We have discussed the fundamentals of the surgical procedure and the typical recovery from surgery.? We have discussed that with cervical myelopathic symptoms present for at least 12 months, surgery is not a guarantee of mosque of function and that the primary goal of surgery is to arrest or prevent further neurological decline.? We have discussed, however, that surgery offers the best chance for recovery of function.? Rodney indicates understanding and asks us to proceed with surgery.? We have also discussed the patient's diagnosis of lumbar stenosis as well as lower extremity symptoms.? I am suspicious that his gait difficulties are referable to his cervical spine but I cannot guarantee that of his lower extremity symptoms would be affected by cervical spine surgery.? In the presence of progressive right upper extremity weakness, however, and myelopathic symptoms, we have discussed at some length that? my preference would be to begin with a cervical decompression. ? The patient expresses understanding . Description of Procedure The patient was brought into the operating room where general anesthesia was induced without complications.? A neutral pos
[2022-10-27] MEDS: fentaNYL CITRATE INJ (*CRX) 100 MCG/2 ML VIAL 25 MCG IV PUSH ×4 (11:18→11:35)
[2022-10-27] MEDS: HYDROcodone/acetaminophen (*CRX) 10-325 MG TABLET 1 TAB PO ×2 (14:47→20:34)
[2022-10-27 17:03] LABS: Glucose Point of Care 203 mg/dl (65-105)
[2022-10-27] MEDS: lisinopriL 20 MG TABLET 40 MG PO (20:44)
[2022-10-27] MEDS: ROSUVASTATIN 10 MG TABLET 20 MG PO (20:45)
[2022-10-27] MEDS: METOPROLOL SUCCINATE EXT REL 50 MG TABCR PO (20:45)
[2022-10-27] MEDS: TRIAMTERENE 37.5 MG/HCTZ 25 MG (MAXZIDE) TABLET 1 TAB PO (20:46)
[2022-10-27] MEDS: CYCLOBENZAPRINE HCL 10 MG TABLET PO (22:50)
[2022-10-28] MEDS: SALINE 0.65% NAS SOLN 44 ML BTL 1 SPRAY NASAL (00:30)
[2022-10-28] MEDS: HYDROcodone/acetaminophen (*CRX) 10-325 MG TABLET 1 TAB PO ×4 (02:02→14:23)
[2022-10-28] MEDS: MORPHINE SULFATE (*CRX) 2 MG/ML INJ IV PUSH (03:12)
[2022-10-28 04:00] VITALS: BP 127/82; PULSE 70; RESP 20; TEMP 36.5; O2SAT 97
[2022-10-28] MEDS: CYCLOBENZAPRINE HCL 10 MG TABLET PO ×2 (08:19→14:23)
--- NOTE | 2022-10-28 13:02 | PM.DS ---
DS: Admitting Diagnosis Discharge Date 10/28/2022 Admitting Diagnosis cervical stenosis DS: Discharge Diagnosis Discharge Diagnosis (1) Cervical stenosis of spinal canal: Code(s): M48.02 - Spinal stenosis, cervical region Status: Acute Assessment and Plan: PAtient admitted for elective cervical decompression and fusion for myelopathic symptoms. Doing well overall and stable for d/c to home on POD#1 DS: Summary Hospital Course Reason for hospitalization: elective spinal fusion Hospital Course: Patient admitted after surgery. Mobilized well and stable for d/c to home on POD#1 Time spent discussing smoking cessation with patient: 3 to 10 minutes Status at Discharge Functional status at discharge: independent ambulation Overall status at discharge: patient is progressing back to baseline Time Spent with Patient Time attestation: Total time spent providing and/or coordinating discharge services: Time spent: Less than 30 minutes DS: Data Data Completed and Pending Labs on day of discharge: Labs from last 24 hours 10/27/22 16:57 POC Capillary Glucose 203 H Discharge Plan Discharge Attending physician on discharge: Aneta Peters Discharging Clinician: Aneta Peters Anticipated Discharge Date/Time: 10/28/22 12:56 Patient Disposition: Home, Self-Care Activity: may shower, may drive after 2 weeks and other - see discharge instructions Diet: diabetic Wound Care Instructions: other - see discharge instructions Discharge Instructions: No heavy lifting x 6 weeks Patient may shower beginning 48 hours after surgery Remove dressing on POD#2 and leave incision open to air Patient Instructions: Antibiotic Form, Pain Management in Older Adults (DC) Stand Alone Forms: General Discharge Information Follow-up/Referrals: Aneta Peters MD [Physician] - 2 Weeks (for staple removal. Patient to call office to schedule) Discharge Medications: New hydrocodone-acetaminophen 5-325 mg tablet 1 - 2 tablet PO Q4H PRN (Reason: pain) Qty: 70 0RF cyclobenzaprine 10 mg tablet 10 mg PO TID PRN (Reason: muscle spasm) Qty: 30 0RF Continued metoprolol succinate 50 mg tablet extended release 24 hr 50 mg PO HS Patient Comments: TAKES AT HS rosuvastatin 20 mg tablet 20 mg PO HS albuterol sulfate [Proventil HFA] 90 mcg/actuation HFA aerosol inhaler 1 inh inhalation PRN PRN (Reason: Shortness Of Breath) triamterene-hydrochlorothiazid 37.5-25 mg capsule 1 cap PO HS Qty: 90 3RF Rx Instructions: Take 1 capsule by mouth once daily lisinopril 40 mg tablet 40 mg PO HS Qty: 90 1RF Held aspirin 81 mg tablet,delayed release (DR/EC) 81 mg PO DAILY acetaminophen [Tylenol Extra Strength] 500 mg Capsule 500 mg PO PRN PRN (Reason: Pain) Hold Instructions: Resume on 11/10/22. until off of pain medicaitons Discontinued naproxen sodium [Aleve] 220 mg tablet 220 mg PO TID PRN (Reason: arthritis pain) Date of admission: 10/27/22 12:33 Primary Care Provider: Allan Pimentel Admitting Provider: Aneta Peters Attending physician on admission: Aneta Peters Condition: Stable Quality VTE Prophylaxis VTE prophylaxis: mechanical ordered Pharmacological Therapy Was IV thrombolytic therapy given?: No
--- NOTE | 2022-10-28 14:29 | PC.NURSE ---
Removed patients dressing and drain at 1310. Drain was removed intact and 2 4x4 gauze was applied with a Tegaderm. Incision looks good with no redness, and asia intact.
== END 2022-10-28 14:50 | disposition home or self-care (01) | DRG 472 ==
LOC: ANH3MEDSUR 12:37
PROVIDERS: Admitting Provider Neurological Surgery; PCP Family Medicine; Visit Provider Neurological Surgery
PROC: 0RG20AJ Fusion of 2 or more Cervical Vertebral Joints with Interbody Fusion Device, Posterior Approach, Anterior Column, Open Approach (ICD-10-PCS; principal; 2022-10-27 07:30)
DX: M48.02 Spinal stenosis, cervical region (principal); G99.2 Myelopathy in diseases classified elsewhere; J44.9 Chronic obstructive pulmonary disease, unspecified; I10 Essential (primary) hypertension; E66.9 Obesity, unspecified; Z68.33 Body mass index [BMI] 33.0-33.9, adult; E78.2 Mixed hyperlipidemia; G47.30 Sleep apnea, unspecified; Z95.5 Presence of coronary angioplasty implant and graft; F17.210 Nicotine dependence, cigarettes, uncomplicated; Z79.899 Other long term (current) drug therapy
CPT/HCPCS: 82948; 97110; 97116; 97161; 97165; 97530; 97535; 99199; A9270; C1713; C9290; J0330; J0690; J1100; J1170; J2250; J2270; J2370; J2405; J2704; J3010; J3370; J7120

== ENCOUNTER 2023-01-01 09:55 | Outpatient (CLI) | payer MEDICARE, MEDICAID, SELFPAY ==
--- NOTE | ~2023-01-01 | XR_ITS ---
EXAMINATION: XR_CERV2-3V_CR DATE: 01/01/2023 10:20 INDICATION: Cervical spine arthrodesis. TECHNIQUE: 3 views of cervical spine were obtained. COMPARISON: Cervical spine MRI 05/09/2022, fluoroscopy 10/27/2022 FINDINGS: There is kyphosis of cervical spine. There is 7 degrees levocurvature of cervical spine. Ve rtebral body heights are normal. There is mildly decreased disc height at C3-C4, moderately decreased disc height at C4-C5 and C5-C6, and severely decreased disc height at C6-C7. There are laminectomies from C3 to C6. There are changes of posterior fusion procedure from C3 to C6 with lateral mass screw s. There is multilevel facet joint osteoarthritis, severe bilaterally at C7-T1. There is mild central canal stenosis at C6-C7. IMPRESSION: 1. Posterior fusion procedure from C3 to C6. 2. Severe cervical spondylosis. Reviewed, dictated and finalized at location A.
== END 2023-01-01 09:56 | disposition home or self-care (01) ==
PROVIDERS: PCP Family Medicine; Visit Provider Neurological Surgery
DX: Z98.1 Arthrodesis status (principal); M47.892 Other spondylosis, cervical region
CPT/HCPCS: 72040

== ENCOUNTER 2023-03-06 09:11 | Outpatient (CLI) | payer OTHER, SELFPAY ==
--- NOTE | ~2023-03-06 | XR_ITS ---
EXAMINATION: XR lumbar spine 2-3V DATE: 03/06/2023 09:54 INDICATION: Radiculopathy, lumbosacral region. TECHNIQUE: 3 views of lumbar spine were obtained. COMPARISON: Lumbar spine radiographs 07/07/22 FINDINGS: There is 5 degrees levocurvature of lumbar spine. There is 3 mm retrolisthesis of L1 on L2 and L2 on L3 and 3 mm anterolisthesis of L4 on L5. Vertebral body heights are normal. There is modera tely decreased disc height at L1-L2 through L4-L5 and mildly decreased disc height at L5-S1. There is multilevel severe facet joint osteoarthritis. There is a stent graft in abdominal aorta and the comm on iliac arteries. IMPRESSION: 1. Severe lumbar spondylosis. Reviewed, dictated and finalized at location A.
== END 2023-03-06 09:12 | disposition home or self-care (01) ==
PROVIDERS: PCP Family Medicine; Visit Provider Neurological Surgery
DX: M48.062 Spinal stenosis, lumbar region with neurogenic claudication (principal); M47.816 Spondylosis without myelopathy or radiculopathy, lumbar region; M54.17 Radiculopathy, lumbosacral region
CPT/HCPCS: 72100

== ENCOUNTER 2023-05-13 07:27 | Outpatient (CLI) | payer OTHER, SELFPAY ==
--- NOTE | ~2023-05-13 | MR_ITS ---
EXAMINATION: MR lumbar spine wo con DATE: 05/13/2023 08:31 INDICATION: Spinal stenosis, lumbar region with neurogenic claudication. TECHNIQUE: Magnetic resonance imaging (MRI) of the lumbar spine was performed without intravenous con trast. COMPARISON: Lumbar spine MRI 07/07/22, radiographs 03/06/2023 FINDINGS: There is 9 degrees levocurvature of lumbar spine. There are Schmorl's nodes at most levels. There is moderately decreased disc height from L1-L2 through L3-L4, severely decreased disc height a t L4-L5, and mildly decreased disc height at L5-S1. The distal spinal cord signal intensity is normal . The conus medullaris is at T12-L1. There is a 5.9 cm fusiform aneurysm of abdominal aorta with sten t graft. The following disc levels are specifically discussed: L1-L2: The disc is bulging and has an annular fissure. There is severe bilateral facet joint osteoart hritis. There is moderate bilateral neural foraminal stenosis. There is moderate central canal stenos is. L2-L3: The disc is bulging and has an annular fissure. There is severe bilateral facet joint osteoart hritis. There is moderate bilateral neural foraminal stenosis. There is mild central canal stenosis. There is severe stenosis of left lateral recess. L3-L4: The disc is bulging and has an annular fissure. There is severe bilateral facet joint osteoart hritis. There is moderate bilateral neural foraminal stenosis. There is severe central canal stenosis . L4-L5: The disc is bulging and has an annular fissure. There is severe bilateral facet joint osteoart hritis. There is moderate bilateral neural foraminal stenosis. There is severe central canal stenosis . L5-S1: The disc is bulging and has an annular fissure. There is severe bilateral facet joint osteoart hritis. There is mild right and moderate left neural foraminal stenosis. There is moderate central ca nal stenosis. There is severe stenosis of right lateral recess secondary to a synovial cyst. IMPRESSION: 1. Severe lumbar spondylosis with interval worsening at L5-S1. Reviewed, dictated and finalized at location E. TITCHING MACHINE OPERATOR
== END 2023-05-13 07:28 | disposition home or self-care (01) ==
PROVIDERS: PCP Family Medicine; Visit Provider Neurological Surgery
DX: M47.816 Spondylosis without myelopathy or radiculopathy, lumbar region (principal); M48.062 Spinal stenosis, lumbar region with neurogenic claudication; M43.06 Spondylolysis, lumbar region
CPT/HCPCS: 72148

== ENCOUNTER 2024-03-05 14:52 | Outpatient (CLI) | payer MEDICARE, SELFPAY ==
--- NOTE | ~2024-03-05 | XR_ITS ---
XR chest 2V 03/05/2024 15:34 Indication: Chronic obstructive pulmonary disease Procedure: 2 view chest Comparison: 05/25/2022 Findings: Heart size normal. There is chronic left upper lobe scarring. No acute focal pneumonia, jayden ma, pleural effusion or pneumothorax. No acute osseous abnormality. Impression: 1: No acute cardiopulmonary disease. Reviewed, dictated and finalized at location B. Impression: 1: No acute cardiopulmonary disease.
== END 2024-03-05 14:53 | disposition home or self-care (01) ==
PROVIDERS: PCP Family Medicine; Visit Provider Family Medicine
DX: J44.9 Chronic obstructive pulmonary disease, unspecified (principal)
CPT/HCPCS: 71046

== ENCOUNTER 2024-05-10 09:21 | Outpatient (CLI) | payer MEDICARE, SELFPAY ==
--- NOTE | ~2024-05-10 | XR_ITS ---
Cervical Spine: AP, lateral, open-mouth views Clinical History: Pain, prior arthrodesis COMPARISON: 01/01/2023 Findings: There is stable reversal normal cervical lordosis. Posterior fusion from C3 through C6 is u nchanged. Moderate to advanced degenerative disc narrowing at C4-C5 and C5 and C6 is again present. T here is severe degenerative disc narrowing at C6-C7. No acute fracture or subluxation. Impression: No significant change overall. Stable posterior fusion from C3 through C6. Stable moderate degenerative spondylosis, as above. Reviewed, dictated and finalized at location . ICER MACHINE Impression: No significant change overall. Stable posterior fusion from C3 through C6. Stable moderate degenerative spondylosis, as above.
== END 2024-05-10 09:22 | disposition home or self-care (01) ==
PROVIDERS: PCP Family Medicine; Visit Provider Neurological Surgery
DX: M47.812 Spondylosis without myelopathy or radiculopathy, cervical region (principal); Z98.1 Arthrodesis status
CPT/HCPCS: 72040

== ENCOUNTER 2025-01-13 09:51 | Outpatient (CLI) | payer MEDICARE, SELFPAY ==
--- NOTE | ~2025-01-13 | MR_ITS ---
MRI of the cervical spine Clinical History: Back pain Technique: Axial T2-weighted and gradient images, and sagittal T1-weighted, T2-weighted, and STIR karmen ges were acquired. Findings: There is reversal normal cervical lordosis. No fracture or subluxation evident. No suspicio us bone marrow signal abnormality seen. At C2-C3, there is disc ossify complex with bilateral facet arthropathy, right worse than left. There is severe right neural foraminal narrowing and probable preservation left neural foramen. No luz c anal stenosis or cord compression. At C3-C4, there is bilateral facet arthropathy. Probable minimal bilateral neural foraminal narrowing , right worse than left. No canal stenosis or cord compression. Probable prior posterior decompressio n. At C4-C5, there is prior posterior decompression. No significant disc bulge or herniation. No canal stenosis or cord compression. There is bilateral facet arthropathy with probable bilateral neural for aminal narrowing. At C5-C6, there is posterior decompression. No canal stenosis or cord compression. There is bilateral facet arthropathy with bilateral neural foraminal narrowing. At C6-C7, there is advanced degenerative disc narrowing. There is disc osteophyte complex with mild t o moderate canal stenosis but no luz cord compression. There is bilateral neural foraminal narrowin g. There are focal areas of T2 hyperintense signal in the cord at the C4 and C5 levels, which could refl ect sequela of prior cord compression and focal areas of myelomalacia. Paravertebral soft tissues are otherwise unremarkable. Impression: Prior posterior decompression from C3 through C6. Multilevel neural foraminal narrowing and degenerative disc change, as above. Probable focal areas of myelomalacia in the spinal cord at C4 and C5 levels. Reversal normal cervical lordosis. Reviewed, dictated and finalized at [facility]. Impression: Prior posterior decompression from C3 through C6. Multilevel neural foraminal narrowing and degenerative disc change, as above. Probable focal areas of myelomalacia in the spinal cord at C4 and C5 levels. Reversal normal cervical lordosis.
== END 2025-01-13 09:52 | disposition home or self-care (01) ==
LOC: GOSHIMG 09:51
PROVIDERS: PCP Family Medicine; Visit Provider Family Medicine
DX: M54.9 Dorsalgia, unspecified (principal); G89.29 Other chronic pain; G95.9 Disease of spinal cord, unspecified; M48.02 Spinal stenosis, cervical region; Z98.1 Arthrodesis status
CPT/HCPCS: 72141

== ENCOUNTER 2025-03-16 15:52 | Outpatient (CLI) | payer MEDICARE, SELFPAY ==
--- OUTSIDE RECORDS SUMMARY | 2015-08-05 08:00 | XMS_ITS | Continuity of Care Document ---
Author Organization [employer] Address [address] [place] [address] [address] [place] [address] Phone Care Team Providers Care A R Specialist Name Role Phone Moiz Tong PT Unavailable Unavailable Procedures Procedure Date Therapeutic Exercise Neuromuscular Re-Ed Neuromuscular Re-Ed Therapeutic Exercise Neuromuscular Re-Ed Therapeutic Exercise Neuromuscular Re-Ed Therapeutic Exercise Neuromuscular Re-Ed Therapeutic Exercise Therapeutic Exercise Neuromuscular Re-Ed Neuromuscular Re-Ed Therapeutic Exercise Therapeutic Exercise Neuromuscular Re-Ed Therapeutic Exercise Neuromuscular Re-Ed Neuromuscular Re-Ed Therapeutic Exercise Therapeutic Exercise Neuromuscular Re-Ed Neuromuscular Re-Ed Therapeutic Exercise Therapeutic Exercise Neuromuscular Re-Ed Neuromuscular Re-Ed Therapeutic Exercise Therapeutic Exercise Neuromuscular Re-Ed Therapeutic Exercise PT Evaluation Advance Directives Directive Yes / No Effective Date File Name No Information Encounters Encounter Description Practice Location Reason(s) For Visit Diagnoses Date Provider Providers Copied on Encounter [facility], [address] [place], [place] [address], [place], [place], [id number], [place] tel:[phone] [facility] [place] [facility] [place] No Information 0 4-201 6 LeFever Moiz. . [email or web address] [facility], [address], [place], [place], [id number], tel:[phone] [facility] [place] [facility] [place] No Information 0 1- 6 LeFever Moiz. . [email or web address] [facility], [address], [place], [place], [id number], tel:[phone] [facility] [place] [facility] [place] No Information 2- 6 LeFever Moiz. . [facility] [employer], [address], [place], [place], [id number], [place] tel:[phone] [address] [facility] [place] No Information - 6 LeFever Moiz. . [facility] [employer] [facility], [address] [facility] [address], [place], [place], [id number], tel:[phone] [facility] [place] No Information 2- 6 LeFever Moiz. . [facility] [employer] [facility], [address], [place], [place], [id number], [place] tel:[phone] [address] [facility] [place] No Information 8- 5 LeFever Moiz. . [email or web address] [facility], [address] [facility] [address], [place], [place], [id number], tel:[phone] [facility] [place] No Information 5- 5 LeFever Moiz. . [facility] [employer] [facility], [address], [place], [place], [id number], [place] tel:[phone] [facility] [place] [facility] [place] No Information 0-201 5 LeFever Moiz. . [facility] [employer], [address], [place], [place], [id number], [place] tel:[phone] [facility] [place] [facility] [place] No Information 5-201 5 LeFever Moiz. . [facility] [employer], [address] [facility] [address], [place], [place], [id number], tel:[phone] [address] [facility] [place] No Information 5 LeFever Moiz. . [facility], [address] [facility] [facility], [place], [place], [id number], tel:[phone] [facility] [place] No Information 5 LeFever Moiz. . [facility] [facility], [address] [facility], [place], [place], [id number], tel:[phone] [facility] [place] No Information 5 LeFever Moiz. . [facility] [employer] [facility], [address] [facility], [place], [place], [id number], tel:[phone] [address] [facility] [place] No Information 5 LeFever Moiz. . [facility], [address] [address], [place], [place], [id number], tel:[phone] [facility] [place] No Information 5 LeFever Moiz. . [facility], [address], [id number], tel:[phone] [address] [facility] [place] No Information 5 LeFever Moiz. . [facility], [address], [id number], tel:[phone] [facility] [place] Complete rotator cuff tear of left shoulderShoulder weakness 5 LeFever Moiz. . Family History Family Member Type Diagnosis Age At Onset No Information Payers Payer name Insurance type Covered alliance party ID Lo stevenson(s) [facility] [id number] Social History Type Description Quantity Date Captured Comments Sex Male Smoking Status No Information Chief Complaint And Reason For Visit No Information Reason For Referral Reason For Referral No Information History Of Present Illness Encounter Date Complaint History Of Prese nt Illness No Information Functional Status Date Functional Assessmen t No Information Instructions Date Instruction Additional Infor mation No Information Assessments Type Assessment Date No Information Patient Care Teams Name Effective Dates (start - stop) Status Members No Information
--- OUTSIDE RECORDS SUMMARY | 2024-12-04 06:04 | XMS_ITS | Continuity of Care Document ---
Author Organization [email or web address] Address [address] [facility] [address] [place] [address] Phone Care Team Providers Care Wound Treatment Rn Name Role Phone Wild ZHOU, BRUNO, Allan Unavailable Unavailab le Procedures Procedure Date Progress Note Therapeutic Activities Neuromuscular Re-Ed Therapeutic Exercise Hot or Cold Pack Therapeutic Activities Neuromuscular Re-Ed Therapeutic Exercise Hot or Cold Pack Therapeutic Activities Neuromuscular Re-Ed Therapeutic Exercise Hot or Cold Pack Therapeutic Activities Neuromuscular Re-Ed Therapeutic Exercise Hot or Cold Pack Therapeutic Activities Neuromuscular Re-Ed Therapeutic Exercise Hot or Cold Pack Therapeutic Activities Neuromuscular Re-Ed Therapeutic Exercise Hot or Cold Pack Therapeutic Activities Neuromuscular Re-Ed Therapeutic Exercise Therapeutic Activities Neuromuscular Re-Ed Therapeutic Exercise Therapeutic Activities Neuromuscular Re-Ed Therapeutic Exercise Hot or Cold Pack Therapeutic Activities Neuromuscular Re-Ed Therapeutic Exercise Hot or Cold Pack Therapeutic Activities Neuromuscular Re-Ed Therapeutic Exercise Hot or Cold Pack Therapeutic Activities Neuromuscular Re-Ed Hot or Cold Pack Therapeutic Exercise Therapeutic Activities Neuromuscular Re-Ed Therapeutic Exercise Hot or Cold Pack Therapeutic Activities Neuromuscular Re-Ed Therapeutic Exercise Hot or Cold Pack Progress Note Therapeutic Activities Neuromuscular Re-Ed Therapeutic Exercise Hot or Cold Pack Therapeutic Activities Neuromuscular Re-Ed Therapeutic Exercise Hot or Cold Pack Therapeutic Activities Neuromuscular Re-Ed Therapeutic Exercise Therapeutic Activities Neuromuscular Re-Ed Therapeutic Exercise Hot or Cold Pack Therapeutic Activities Neuromuscular Re-Ed Therapeutic Exercise Hot or Cold Pack Therapeutic Activities Neuromuscular Re-Ed Therapeutic Exercise Hot or Cold Pack Therapeutic Activities Neuromuscular Re-Ed Therapeutic Exercise Hot or Cold Pack Therapeutic Activities Neuromuscular Re-Ed Therapeutic Exercise Hot or Cold Pack Therapeutic Activities Neuromuscular Re-Ed Therapeutic Exercise Therapeutic Activities Neuromuscular Re-Ed Therapeutic Exercise Therapeutic Activities Neuromuscular Re-Ed Therapeutic Exercise Hot or Cold Pack Progress Note Therapeutic Activities Neuromuscular Re-Ed Therapeutic Exercise Therapeutic Activities Neuromuscular Re-Ed Therapeutic Exercise Hot or Cold Pack Therapeutic Activities Neuromuscular Re-Ed Therapeutic Exercise Manual Therapy Hot or Cold Pack Therapeutic Activities Neuromuscular Re-Ed Therapeutic Exercise Manual Therapy Therapeutic Activities Neuromuscular Re-Ed Therapeutic Exercise Manual Therapy Hot or Cold Pack Therapeutic Activities Neuromuscular Re-Ed Therapeutic Exercise Manual Therapy Therapeutic Activities Neuromuscular Re-Ed Therapeutic Exercise Manual Therapy Hot or Cold Pack Doc neg elder mal no plan PT Evaluation Moderate Complexity Therapeutic Activities Neuromuscular Re-Ed Therapeutic Exercise Manual Therapy Advance Directives Directive Yes / No Effective Date File Name No Information Encounters Encounter Description Practice Location Reason(s) For Visit Diagnoses Date Provider Providers Copied on Encounter [facility], [address] [facility] [address], [place], [place], [id number], [place] tel:[phone] [facility] No Information Wild Lemus. . Referring Provider: Johanna Saleh [address], [place], [address]. tel:[phone] [facility], [address] [facility] [address], [place], [place], [id number], [place] tel:[phone] [facility] No Information Laura Lockett. . Referring Provider: Johanna Saleh [address], [place], [address]. tel:[phone] [facility], [address] [facility] [address], [place], [place], [id number], [place] tel:[phone] [facility] No Information Laura Lockett. . Referring Provider: Johanna Saleh [address], [place], [address]. tel:[phone] [facility], [address] [address], [place], [place], [id number], [place] tel:[phone] [facility] No Information Laura Lockett. . Referring Provider: Johanna Saleh [address], [place], [address]. tel:[phone] [facility], [address] [address], [place], [place], [id number], [place] tel:[phone] [facility] No Information Laura Lockett. . Referring Provider: Johanna Saleh [address], [place], [address]. tel:[phone] [facility], [address] [facility] [address], [place], [place], [id number], [place] tel:[phone] [facility] No Information Laura Lockett. . Referring Provider: Johanna Saleh [address], [place], [address]. tel:[phone] [facility], [address] [facility], [place], [place], [id number], [place] tel:[phone] [facility] No Information Laura Lockett. . Referring Provider: Johanna Saleh [address], [place], [address]. tel:[phone] [facility], [address] [address], [place], [id number], [place] tel:[phone] [facility] No Information Gwyn Singletary. . Referring Provider: Johanna Saleh [address], [place], [address]. tel:[phone] [facility], [address] [address], [place], [place], [id number], tel:[phone] [facility] No Information Gwyn Singletary. . Referring Provider: Johanna Saleh [address] [facility], [place], [address]. tel:[phone] [facility], [address] [address], [place], [id number], [place] tel:[phone] [facility] No Information Laura Lockett. . Referring Provider: Johanna Saleh [address], [place], [address]. tel:[phone] [facility], [address] [address], [place], [id number], [place] tel:[phone] [facility] No Information Laura Lockett. . Referring Provider: Johanna Saleh [address], [place], [address]. tel:[phone] [facility], [address] [address], [place], [place], [id number], tel:[phone] [facility] No Information Laura Lockett. . Referring Provider: Johanna Saleh [address], [place], [address]. tel:[phone] [facility], [address] [facility] [address], [place], [place], [id number], [place] tel:[phone] [facility] No Information Sanchezbrenden Lockett. . Referring Provider: Johanna Saleh [address], [place], [address]. tel:[phone] [facility], [address], [place], [place], [id number], [place] tel:[phone] [facility] No Information Sanchez Levy. . Referring Provider: Johanna Saleh [address], [place], [address]. tel:[phone] [facility], [address] [address], [place], [place], [id number], [place] tel:[phone] [facility] No Information Laura Lockett. . Referring Provider: Johanna Saleh [address], [place], [address]. tel:[phone] [facility], [address] [facility] [address] [facility], [place], [id number], [place] tel:[phone] [facility] No Information Laura Lockett. . Referring Provider: Johanna Saleh [address], [place], [address]. tel:[phone] [facility], [address], [place], [place], [id number], [place] tel:[phone] [facility] No Information Sanchezbrenden Lockett. . Referring Provider: Johanna Saleh [address], [place], [address]. tel:[phone] [facility], [address], [place], [id number], [place] tel:[phone] [facility] No Information Laura Lockett. . Referring Provider: Johanna Saleh [address] [facility], [place], [address]. tel:[phone], [address], [id number], tel:[phone] [facility] No Information Laura Lockett. . Referring Provider: Johanna Saleh [address] [facility], [place], [address]. tel:[phone] [facility], [address], [id number], [place] tel:[phone] [facility] No Information Laura Lockett. . Referring Provider: Johanna Saleh [address] [address], [place], [address]. tel:[phone], [address], [id number], [place] tel:[phone] [facility] No Information Laura Lockett. . Referring Provider: Johanna Saleh [address] [facility], [place], [address]. tel:[phone], [address] [place] [address], [id number], tel:[phone] [facility] No Information Laura Lockett. . Referring Provider: Johanna Saleh [address] [facility], [place], [address]. tel:[phone], [facility] [address], [id number], [place] tel:[phone] [facility] No Information Laura Lockett. . Referring Provider: Johanna Saleh [address], [place], [address]. tel:[phone] [facility], [address] [facility] [address], [place], [id number], [place] tel:[phone] [facility] No Information Laura Lockett. . Referring Provider: Johanna Saleh [address], [place], [address]. tel:[phone] [facility], [address] [facility] [address], [place], [place], [id number], [place] tel:[phone] [facility] No Information Laura Lockett. . Referring Provider: Johanna Saleh [address], [place], [address]. tel:[phone] [facility], [address] [address], [place], [place], [id number], tel:[phone] [facility] No Information Laura Lockett. . Referring Provider: Johanna Saleh [address], [place], [address]. tel:[phone] [facility], [address] [address], [place], [id number], [place] tel:[phone] [facility] No Information Wild Rees . Referring Provider: Johanna Saleh [address], [place], [address]. tel:[phone] [facility], [address] [facility] [address], [place], [place], [id number], [place] tel:[phone] [facility] No Information Laura Lockett. . Referring Provider: Johanna Saleh [address], [place], [address]. tel:[phone] [facility], [address] [facility] [address], [place], [place], [id number], [place] tel:[phone] [facility] No Information Laura Lockett. . Referring Provider: Johanna Saleh [address], [place], [address]. tel:[phone] [facility], [address] [address], [place], [place], [id number], tel:[phone] [facility] No Information Laura Lockett. . Referring Provider: Johanna Saleh [address], [place], [address]. tel:[phone], [address] [place] [address], [id number], [place] tel:[phone] [facility] No Information Laura Lockett. . Referring Provider: Johanna Saleh [address] [facility], [place], [address]. tel:[phone], [address], [id number], [place] tel:[phone] [facility] No Information Laura Lockett. . Referring Provider: Johanna Saleh [address] [facility], [place], [address]. tel:[phone], [address] [place] [address], [id number], tel:[phone] [facility] No Information Laura Lockett. . Referring Provider: Johanna Saleh [address], [place], [address]. tel:[phone] [facility], [facility] [address], [id number], [place] tel:[phone] [facility] No Information Wild Lemus. . Referring Provider: Johanna Saleh [address], [place], [address]. tel:[phone] Family History Family Member Type Diagnosis Age At Onset No Information Payers Payer name Insurance type Covered green party ID Authoraki stevenson(s) [facility] [id number] Social History Type Description Quantity Date Captured [...]
--- NOTE | ~2025-03-16 | MR_ITS ---
EXAMINATION: MR lumbar spine wo con, 03/16/2025 16:05 CDT HISTORY: Radiculopathy COMPARISON: 05/13/2023 TECHNIQUE: Multi-planar multi-sequence images were obtained of the lumbar spine without contrast per protocol. FINDINGS: Moderate loss of vertebral height throughout. No acute fracture. Minimal grade 1 retrolisthesis of L1 on L2 and L2 on L3. Marrow signal is appropriate with scattered areas of subcentimeter hemangioma formation. Posterior alignment is intact. There is no abnormal signal within the posterior elements The conus terminates at T12-L1, there is no abnormal signal within the visualized spinal cord Moderate to severe loss of disc height throughout with multilevel moderate to severe disc desiccation and endplate degenerative changes with findings most marked at L1-2 and L4-5. Soft tissues demonstrate subcentimeter probable renal cysts with partially imaged aneurysm of the aorta measuring 4.8 cm incompletely evaluated, CTA is recommended to further assess L5-S1: Circumferential bulging of the disc with moderate ligamentum flavum and facet hypertrophy. Moderate to severe bilateral foramina, lateral recess and canal stenosis. L4-5: Circumferential bulging of the disc with ligamentum flavum and facet hypertrophy. Severe bilateral foramina, lateral recess and canal stenosis. L3-4: Circumferential bulging of the disc with ligamentum flavum and facet hypertrophy. Severe bilateral foramina, canal and lateral recess stenosis. L2-L3: Circumferential bulging of the disc with ligamentum flavum and facet hypertrophy. Severe bilateral foramina, lateral recess and moderate to severe canal stenosis. L1-L2: Circumferential bulging of the disc with ligamentum flavum and facet hypertrophy. Moderate to severe bilateral foramina and lateral recess stenosis with moderate to severe canal stenosis. IMPRESSION: 1. Severe multilevel degenerative changes which appear progressed compared to the prior study. 2. Aortic aneurysm. CTA recommended Reviewed, dictated and finalized at location A. IMPRESSION: 1. Severe multilevel degenerative changes which appear progressed compared to t he prior study. 2. Aortic aneurysm. CTA recommended
--- OUTSIDE RECORDS SUMMARY | 2025-03-16 18:33 | XMS_ITS | Clinical Summary ---
Author Organization [facility] [address] Address [address] [place] [address] Care Team Providers Care Director Business Travel Name Role Phone Allan Pimentel MD Primary Care Provider [phone] Allan Middleton MD Unavailable [phone] Allergies Active Allergy Reactions Criticality Noted Date Comments Amlodipine Dizziness Low 07/05/2021 Light headed Medications triamterene-hydro CHLOROthiazide 37.5-25 mg per capsule Take 1 tablet/capsule by mouth nightly 1 Active lisinopriL (PRINIVIL,ZESTRIL ) 40 mg tablet Take 1 tablet (40 mg total) by mouth nightly Active naproxen (ALEVE) 220 mg tablet Take by mouth 2 (two) times a day with meals 3 tabs daily prn Active aspirin 81 mg enteric coated tablet Take 1 tablet (81 mg total) by mouth daily Active metoprolol XL (TOPROL-XL) 50 mg extended release tablet Take 1 tablet (50 mg total) by mouth nightly 2 Active albuterol HFA (PROVENTIL HFA,VENTOLIN HFA,PROAIR HFA) 90 mcg/actuation inhaler Inhale 1 puff every 4 (four) hours as needed 2 Active aspirin-sodium bicarbonate-citri c acid (MOHAN-SELTZER) 324 mg tablet, effervescent Take 325 mg by mouth daily as needed for headaches Active acetaminophen (TYLENOL) 500 mg tablet Active gabapentin (NEURONTIN) 300 mg capsule Take 1 capsule (300 mg total) by mouth 2 (two) times a day 4 Active fluticasone propionate (FLONASE) 50 mcg/actuation nasal spray 5 Active rosuvastatin (CRESTOR) 20 mg tablet Take 1 tablet by mouth once daily 90 tablet 5 Active Active Problems Problem Noted Date Diagnosed Date AAA (abdominal aortic aneurysm) without rupture 09/05/2022 Assessment & Plan (10/31/2024 11:05 AM CDT): AAA status post EVAR with persistent type 2 endoleak CTA 10/23/2024 finding [place] aneurysm currently measuring 5.3 cm with persistent endoleak. Follow-up 6 months CTA abdomen and pelvis Assessment & Plan (04/13/2023 1:40 PM CDT): Impression: Patient has a stable abdominal aortic aneurysms sac measuring 5.7 cm with a type 2 endoleak seen on CTA of abdomen and pelvis. He remains asymptomatic. Plan: No surgical interventions indicated at this time. -patient to follow-up in 6 months for re-evaluation with repeat CTA of abdomen pelvis. Assessment & Plan (10/26/2022 12:50 PM CDT): AAA status post EVAR with a type 2 endoleak from an accessory renal as well as lumbar arteries. Will need ongoing surveillance, repeat CTA abdomen pelvis in 6 months. Assessment & Plan (09/27/2022 8:47 AM CDT): Status post percutaneous endovascular aneurysm repair, doing great since surgery. We will plan for surveillance CT abdomen pelvis in the next 2-3 weeks with follow- up with me in the office in 6 months. Mixed hyperlipidemia 08/16/2022 Assessment & Plan (04/13/2023 1:40 PM CDT): Impression: Chronic stable. Plan: Continue Crestor Assessment & Plan (08/16/2022 2:01 PM PUBLISHING EDITOR): Stable continue Crestor 20 mg Primary hypertension 07/19/2022 Assessment & Plan (04/13/2023 1:40 PM CDT): Impression: Chronic stable Plan: Continue lisinopril Assessment & Plan (08/16/2022 2:01 PM PUBLISHING EDITOR): Stable continue lisinopril 40 mg. Assessment & Plan (07/19/2022 3:17 PM PUBLISHING EDITOR): Lisinopril Coronary artery disease invo lving [place] coronary artery of [place] heart without angina pectoris 09/08/2021 Assessment & Plan (07/19/2022 3:17 PM PUBLISHING EDITOR): Plavix History of coronary artery stent placement 09/08 Tussive syncope 04/03/2016 Obesity 04/03/2016 Heavy smoker (more than 20 cigarettes per day) 1 Resolved Problems Problem Noted Date Diagnosed Date Resolved Date Abdominal aortic aneurysm (A AA) without rupture 07/19/2022 04/13/2023 Assessment & Plan (08/16/2022 1:50 PM PUBLISHING EDITOR): 5.8 cm infrarenal abdominal aortic aneurysms risks benefits alternatives to endovascular aortic aneurysm repair discussed, risks including bleeding, infection, perforation, thrombosis, distal embolization, contrast induced nephropathy, mesenteric ischemia, renal failure, ischemia to the pelvis or lower extremities, NM, stroke and . He wished to proceed. We will get him scheduled after cardiac risk assessment. Continue ASA statin therapy in good blood pressure control. Assessment & Plan (07/19/2022 3:17 PM PUBLISHING EDITOR): 6 cm saccular AAA on MRI, discussed at length with the patient recommendation for surgical intervention at 5 5.5 cm as well as for saccular aneurysms. CTA abdomen pelvis ordered for further evaluation, pending this he is going to need an endovascular aneurysm repair versus open repair. We will get cardiac risk assessment as well. Plan to follow-up in 1-2 weeks. Continue statin therapy in good blood pressure control. Surgical History Surgery Date Site/Laterality Comments LUNG SURGERY 07/02/2010 - 07/01/2011 Left lobectomy- benign growth CARDIAC CATHETERIZATION 06/10/2021 CORONARY ANGIOPLASTY 06/10/2021 APPENDECTOMY 1957 - 07/01/1958 COLONOSCOPY normal BRONCHOSCOPY prior to lung surgery Medical History Medical History Date Comments Hypertension Lumbar pain spinal stenosis Hyperlipidemia Coronary artery disease 06/10/2021 Arthritis 07/26/2021 Awareness under anesthesia tadeo curtis bronch GERD (gastroesophageal reflux disease) prn Mohan Sargent OA (osteoarthritis) spine Neuropathy BILATERAL FEET Family History Medical History Relation Name Comments Alzheimer's disease Father Roe Cancer Mother Christy Pancreatic cancer Mother Christy Relation Name Status Comments Father Roe Mother Christy Social History Tobacco Use Types Packs/Day Years Used Date Smoking Tobacco: Every Day Cigarettes 1 50 Smokeless Tobacco: Never Tobacco Cessation:Ready to Q uit: Not Asked; Counseling Given: Not Answered Social Connection and Isolation Panel Answer Date Recorded In a typical week, how many times do you talk on the phone with family, friends, or neighbors? More than three times a week 09/06/2022 How often do you get togethe r with friends or relatives? More than three times a week 09/06/2022 How often do you attend chur ch or religion services? Never 09/06/2022 Do you belong to any clubs o r organizations such as presybeterian groups, unions, fraternal or athletic groups, or school groups? No 09/06/2022 How often do you attend meet ings of the clubs or organizations you belong to? Never 09/06/2022 Are you , , di vorced, , never , or living with a partner? 09/06/2022 AUDIT-C Answer Date Recorded Q1: How often do you have a drink containing alcohol? Never 09/05/2022 Q2: How many drinks containi ng alcohol do you have on a typical day when you are drinking? Patient does not drink Q3: How often do you have si x or more drinks on one occasion? Never 09/05/2022 Overall Financial Resource Strain (CARDIA) Answe r Date Recorded How hard is it for you to pa y for the very basics like food, housing, medical care, and heating? Not hard at all 09/06/2022 PRAPARE - Transportation Answer Date Re corded In the past 12 months, has l ack of transportation kept you from medical appointments or from getting medications? No 01/2023 In the past 12 months, has l ack of transportation kept you from meetings, work, or from getting things needed for daily living? No 09/06/2022 Personal Safety Answer Date Recorded Getting School Help Needed Denies 06/16 Sex and Gender Information Value Date Recorded Sex Assigned at Not on file Legal Sex Male 11:11 AM PUBLISHING EDITOR Gender Identity Not on file Sexual Orientation Not on file Obstetrics History Last Filed Vital Signs Vital Sign Reading Time Taken Comments Blood Pressure 144/89 10/29/2024 9:13 AM CDT Pulse 73 10/29/2024 9:13 AM CDT Temperature 36.6 C (97.9 F) 09/06/2022 3:57 PM PUBLISHING EDITOR Respiratory Rate 20 09/06/2022 3:57 PM PUBLISHING EDITOR Oxygen Saturation 95% 10/29/2024 9:13 AM CDT Inhaled Oxygen Concentration - - Weight 102.1 kg (225 lb) 10/29/2024 9:13 AM CDT Height 177.8 cm (5' 10) 10/29/2024 9:13 AM CDT Body Mass Index 32.28 10/29/2024 9:13 AM CDT Plan of Treatment Health Maintenance Due Date Last Done Comments Colon Cancer Screening-Colonoscopy 1955 Depression Screening 1955 Hepatitis C Screening 1955 Prostate Cancer Screening-PSA 1957 DTaP/Tdap/Td Vaccine (1 - Tdap) 01/12/1968 Hepatitis B Screening 1975 Pneumococcal vaccine 65+ (1 of 2 - PCV) 01/12/1976 Lung Cancer Screening 2007 Zoster Vaccine (1 of 2) 2007 Well Visit 65+ 2022 Fall Risk Assessment 09/06/2023 09/05/2022 Covid-19 Vaccine (4 - 2024-2 6 season) 2025 06/16/2021, 10/25/2020, 10/04/2020 Influenza Vaccine (#1) 2025 , 04/19/2020, 04/25/2019, Additional history exists Abdominal Aortic Aneurysm (A AA) Screen Completed 10/29/2024, 10/29/2024, 10/23/2024, Additional history exists Medical Devices Implanted Type Area Real Estate Associate Device Identifier Shelf Expiration Date Model / Serial / Lot [employer] Excluder 14.5mm 32mm 14cm 6.5cm Conformable Active Control Trunk [id number] - [id number] - [id number] Implanted:Qty : 1 on 09/05/2022 by Forrest Herrera MD at [facility] Endoprosthesis N/A: Femoral [employer] [id number] 05/06/2025 [id number] / [id number] / Description:Main body [employer] Excluder 20mm 16.5-18.5mm 9.5cm Stent Abrasion Resistant [id number] - [id number] - [id number] Implanted:Qty : 1 on 09/05/2022 by Forrest Herrera MD at [facility] Endoprosthesis N/A: Femoral W[employer] [id number] 08/31/2023 [id number] / Description:left [employer]l [employer] Excluder 18mm 14.5-16.5mm 9.5cm Stent Abrasion Resistant [id number] - [id number] - [id number] Implanted:Qty : 1 on 09/05/2022 by Forrest Herrera MD at [facility] Endoprosthesis N/A: Femoral Wl [employer] [id number] 03/16/2025 [id number] / [id number] / Stent Stent [employer] Perclose 6fr Vascular Closure 22361-34 - [id number] - [id number] Implanted:Qty : 1 on 09/05/2022 by Forrest Herrera MD at [facility] N/A: Femoral [employer] 01/30/2024 13498-1 [id number] / Procedures Procedure Name Priority Date/Time Associated Diagnosis Comments CTA ABDOMEN PELVIS W WO CONTRAST Schedule Routine, Read Routine (OP Routine) 10/23/2024 10:10 AM CDT Infrarenal abdominal aortic aneurysm (AAA) without rupture Aftercare following surgery of the circulatory system from Last 3 Months or Most Recently Relevant to Health Maintenance Results * CTA Abdomen Pelvis (10/23/2024 10:10 AM CDT) Anatomical Region Laterality Modality Body N/A Computed Tomogra phy 10/28/2024 12:2 4 PM CDT Narrative 10/28/2024 12:43 PM CDT EXAM DESCRIPTION: CTA ABDOMEN PELVIS REASON FOR STUDY: Abdominal aortic aneurysm (AAA), post-op follow-up 09/05/22 EVAR. TECHNIQUE: CTA scan of the abdomen and pelvis performed without and with intravenous and without oral contrast using helical scanning technique with dynamic intravenous contrast injection. Precontrast, arterial, and portal venous phase images of the abdomen and pelvis were acquired. Images reviewed with lung, soft tissue and bone windows. Reconstructed coronal and sagittal MPR images reviewed. All images stored on PACS. 3D MIP images rendered on scanning unit and reviewed at time of interpretation. Automated exposure control was used as a dose optimization technique for this examination. CONTRAST TYPE/DOSE: 100mL of IOVERSOL 350 MG IODINE/ML INTRAVENOUS SYRINGE injected via intravenous COMPARISON: CT abdomen pelvis 10/11/2023 , 03/30/2023 FINDINGS: VASCULATURE: Endovascular repair of the abdominal aorta extending from the level of the renal arteries into both common iliac arteries. Small endoleak near the graft bifurcation is once again seen. It appears to supply and accessory left renal artery. The excluded aneurysmal sac measures 5.3 cm compared to 5 cm on the prior exam and 5.5 cm in 2022. The stent is well opacified. No dissection. CELIAC TRUNK: No flow limiting stenosis, dissection, or aneurysm. SUPERIOR MESENTERIC ARTERY: No flow limiting stenosis, dissection, or aneurysm. RIGHT RENAL ARTERY: No flow limiting stenosis, dissection, or aneurysm. LEFT RENAL ARTERY: Left renal artery is patent. The accessory left renal artery is supplied as below. INFERIOR MESENTERIC ARTERY: Arises from the anterior aspect of the pseudo gestational sac in likely is supplied by the endoleak. This is unchanged. ILIAC ARTERIES: Mild narrowing of the right external iliac artery and right common femoral artery. Mild narrowing of the left external iliac artery. There is moderate narrowing of the left internal iliac artery. LOWER CHEST: No significant pulmonary abnormalities. No pleural effusion. LIVER: No focal liver lesion. GALLBLADDER: No calcified gallstones. BILE DUCTS: No intrahepatic or extrahepatic ductal dilatation. SPLEEN: Normal size. No focal lesions. PANCREAS: No masses. No adjacent inflammation or peripancreatic fluid collections. No pancreatic ductal dilatation. ADRENALS: Normal. KIDNEYS/URINARY TRACT: Area of hypoattenuation involving the lower poles of both kidneys on the arterial phase show improved perfusion on the delayed phases. There is some atrophy and volume loss in the lower pole of the right kidney suggesting at least partial infarction/scarring. Cyst in the interpolar left kidney. No hydronephrosis. Urinary bladder is unremarkable. GI: Moderate sigmoid colon diverticulosis. No diverticulitis. The appendix is not seen with certainty. No pericecal inflammatory change. No dilated loops of bowel to suggest obstruction. PERITONEUM: No ascites or free air. RETROPERITONEUM: No mass or lymphadenopathy. REPRODUCTIVE: The prostate is top-normal in size. MUSCULOSKELETAL: Scattered sclerotic lesions in the pelvis are grossly unchanged from 2023. Moderate thoracolumbar spondylosis. OTHER: Small fat containing umbilical hernia. IMPRESSION: Endovascular repair of the abdominal aortic aneurysm. Small endoleak near the graft bifurcation is once again seen. It appears to supply an accessory left renal artery, unchanged. The excluded aneurysmal sac measures 5.3 cm compared to 5 cm on the prior exam and 5.5 cm in 202. Area of hypoattenuation involving the lower poles of both kidneys on the arterial phase show improved enhancement on the portal venous phase likely representing transient disruptions in blood flow. There is some atrophy/scarring of the lower pole of the right kidney suggesting at least some degree of infarction. THIS IS AN ELECTRONICALLY VERIFIED FINAL REPORT 10/28/2024 12:43 PM - Electronically signed by Mike Kevin M.D. LB T: Report ID: [id number] Reading Location: [id number] Procedure Note Mike Kevin MD - 10/28/2024 EXAM DESCRIPTION: CTA ABDOMEN PELVIS REASON FOR STUDY: Abdominal aortic aneurysm (AAA), post-op follow-up 09/05/22 EVAR. TECHNIQUE: CTA scan of the abdomen and pelvis performed without and with intravenous and without oral contrast using helical scanning techniquewith dynamic intravenous contrast injection. Precontrast, arterial, and portal venous phase images of the abdomen and pelvis were acquired. Images reviewed with lung, soft tissue and bone windows. Reconstructed coronaland sagittal MPR images reviewed. All images stored on PACS. 3D MIP images rendered on scanning unit and reviewed at time of interpretation.Automated exposure control was used as a dose optimization technique for this examination. CONTRAST TYPE/DOSE: 100mL of IOVERSOL 350 MG IODINE/ML INTRAVENOUSSYRINGE injected via intravenous COMPARISON: CT abdomen pelvis 10/11/2023 , 03/30/2023 FINDINGS: VASCULATURE: Endovascular repair of the abdominal aortaextending from the level of the renal arteries into both common iliac arteries.Small endoleak near the graft bifurcation is once again seen. It appears tosupply and accessory left renal artery. The excluded aneurysmal sac measures 5.3cm compared to 5 cm on the prior exam and 5.5 cm in 2022. The stent is well opacified. No dissection. CELIAC TRUNK: No flow limiting stenosis, dissection, or aneurysm. SUPERIOR MESENTERIC ARTERY: No flow limiting stenosis, dissection, or aneurysm. RIGHT RENAL ARTERY: No flow limiting stenosis, dissection, or aneurysm. LEFT RENAL ARTERY: Left renal artery is patent. The accessory leftrenal artery is supplied as below. INFERIOR MESENTERIC ARTERY: Arises from the anterior aspect of thepseudo gestational sac in likely is supplied by the endoleak. This is unchanged. ILIAC ARTERIES: Mild narrowing of the right external iliac artery andright common femoral artery. Mild narrowing of the left external iliac artery. There is moderate narrowing of the left internal iliac artery. LOWER CHEST: No significant pulmonary abnormalities. No pleuraleffusion. LIVER: No focal liver lesion. GALLBLADDER: No calcified gallstones. BILE DUCTS: No intrahepatic or extrahepatic ductal dilatation. SPLEEN: Normal size. No focal lesions. PANCREAS: No masses. No adjacent inflammation or peripancreatic fluid collections. No pancreatic ductal dilatation. ADRENALS: Normal. KIDNEYS/URINARY TRACT: Area of hypoattenuation involving the lower polesof both kidneys on the arterial phase show improved perfusion on the delayed phases. There is some atrophy and volume loss in the lower pole of theright kidney suggesting at least partial infarction/scarring. Cyst in the interpolar left kidney. No hydronephrosis. Urinary bladder is unremarkable. GI: Moderate sigmoid colon diverticulosis. No diverticulitis. Theappendix is not seen with certainty. No pericecal inflammatory change. No dilated loops of bowel to suggest obstruction. PERITONEUM: No ascites or free air. RETROPERITONEUM: No mass or lymphadenopathy. REPRODUCTIVE: The prostate is top-normal in size. MUSCULOSKELETAL: Scattered sclerotic lesions in the pelvis are grossly unchanged from 202. Moderate thoracolumbar spondylosis. OTHER: Small fat containing umbilical hernia. IMPRESSION: Endovascular repair of the abdominal aortic aneurysm. Small endoleak nearthe graft bifurcation is once again seen. It appears to supply an accessoryleft renal artery, unchanged. The excluded aneurysmal sac measures 5.3 cmcompared to 5 cm on the prior exam and 5.5 cm in 202. Area of hypoattenuation involving the lower poles of both kidneys on the arterial phase show improved enhancement on the portal venous phase likely representing transient disruptions in blood flow. There is some atrophy/scarring of the lower pole of the right kidney suggesting at least some degree of infarction. THIS IS AN ELECTRONICALLY VERIFIED FINAL REPORT 10/28/2024 12:43 PM - Electronically signed by Mike Kevin M.D. LB T: Report ID: [id number] Reading Location: [place] [id number] PROCEDURES Final Res ult from Last 3 Months or Most Recently Relevant to Health Maintenance Insurance [facility] MEDICARE ADVANTAGE [facility] Address: [facility] [address] [place] [address] [facility] MEDICARE ADVANTAGE [facility] MEDICARE Address: [facility] [address] [place] [address] Advance Directives For more information, please contact: [phone] Documents on File Type Date Recorded Patient Manager Intensive Care Expl anation ADVANCE DIRECTIVE 08/30/2022 12:38 PM Power of Claims Adjustor-Medical * Full Code (Latest Code Status on File) Date Activated Date Inactivated Comments 09/05/2022 1:42 PM 09/06/2022 9:33 PM Care Teams Director Business Travel Relationship Specialty Start Date End Date Allan Pimentel MD PCP - General Family Medicine 06/10/21 Allan Middleton MD [address] [address] Consulting Physician Cardiology 08/30/22
--- OUTSIDE RECORDS SUMMARY | 2025-03-16 18:33 | XMS_ITS | Patient Health Record ---
Author Organization [facility] Address [address] [place] [address] Care Team Providers Care Manager Of Human Resources Name Role Phone Allan Pimentel MD Primary Care Provider Claribel Saldana Unavailable [phone] NO, PCP Unavailable Unavailable Hurt, Leonard Unavailable [phone] Allergies Allergen (clinical drug ingredient) Drug/Non Drug Allergy documented on EMR Reaction Allergy Type Onset Date Status amlodipine amLODIPine blackout, knew what was going on, but couldn't react Drug Allergy Active Reason For Referral Reason Myelomalacia (possib le) L RUE Weakness Referral Organization [facility] Referring Provider First Name Claribel Referring Provider Last Name Anthony Referring Provider Speciality Pain Medic ine Referred Provider Aneta Gonzales Referred Provider Specialty Neurosurgery Referral Priority Routine Medications Medication SIG (Take, Route, Frequency, Duration) Notes Start Date End Date Status Lisinopril 40 MG 1 tablet Orally Once a day Active Fluticasone Propionate 93 MCG/ACT 2 sprays (1 spray in each nostril) Nasally Twice a day Active Rosuvastatin Calcium 20 MG 1 tablet Oral ly Once a day Active Albuterol Sulfate 4 MG 1 tablet Orally T hree times a day Active Aleve 220 MG 1 tablet with food o r milk as needed Orally every 12 hrs Active Tylenol 8 Hour 650 MG 2 tablets as neede d Orally every 8 hrs Active tiZANidine HCl 4 MG 1-2 tablets at bedti me as needed Orally at bedtime as needed for 30 days 02/17/2025 Active Triamterene-HCTZ 37.5-25 MG 1 tablet in the morning Orally Once a day Active Metoprolol Tartrate 50 MG 1 tablet with food Orally Twice a day Active Social History Tobacco Use: Social History Observation Description Date Details (start date - stop date) Current Smoker 01/30/1975 - NA Tobacco Control (Standard) Question Answer Notes Tobacco use: Current smoker When did you start smoking? 01/30/1975 How often do you smoke cigarettes? Every day How many cigarettes a day do you smoke? 21-30 How soon after you wake up do you smoke your fir st cigarette? Within 5 minutes Are you interested in quitting? Not ready to olivia t AUDIT-C (Standard) Question Answer Notes Did you have a drink containing alcohol in the p ast year? No Points 0 Interpretation Negative Problems Problem Type SNOMED Code ICD Code Onset Dates Problem Status W/U Status Risk Notes Problem Lumbar radiculopathy (340623328) Lumbar radiculopathy (M54.16) Active confirmed Problem Radiculopathy (45624886) Radiculopathy (M54.10) Active confirmed Vital Signs Heart Rate 82 /min 02/17/2025 Blood pressure diastolic 74 mm Hg 02/17/2025 Height 60 in 02/17/2025 Blood pressure systolic 122 mm Hg 02/17/2025 Weight 225 lbs 02/17/2025 BMI 43.94 kg/m2 02/17/2025 Encounters Encounter Location Date Provider Diagnosis [facility] [address] 02/17/2025 Leonard Hurt Lumbar radiculopathy M54.16 and Cervical radiculopathy M54.12 Assessments Encounter Date Diagnosis (ICD Code) Assessment Notes Treatment Notes Treatment Clinical Notes Section Notes 02/17/2025 Lumbar radiculopathy (ICD-10 - M54.16) IMPRESSION: 1. Bilateral posterior thigh pain. 2. Lumbar radiculopath y. 3. 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 4. Neck pain. 02/17/2025 Cervical radiculopathy (ICD-10 - M54.12) IMPRESSION: 1. Bilateral posterior thigh pain. 2. Lumbar radiculopath y. 3. 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 4. Neck pain. 02/17/2025 Other PLAN: We explained to the patient that due to the findings on his MRI, which include myelomalacia of the cervical spine and due to the significant weakness and decreased range of motion in his right arm, we will refer the patient back to Dr. Aneta Gonzales, in neurosurgery, for further evaluation. The patient notes that he was supposed to see her in the past, but he did not follow up with her. We discussed with the patient about the risks of not having surgery if it is indicated, including the risks of permanent neural deficits, such as weakness and sensory deficits. The patient expressed understanding to this. We will order an MRI of the lumbar spine without contrast secondary to the patient's pain symptoms and neural deficits on exam. We will review the report at a followup visit. The patient notes that he does take Aleve for his pain regularly. We educated the patient on the risks of nonsteroidal anti-inflammatory drugs due to the patient's history of significant cardiovascular disease. 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 We will prescribe Tizanidine (Zanaflex) 4 mg 1-2 tablets at night as needed to improve muscle pain and sleep quality overnight. Discussed potential medication risks and side effects of the above medication with the patient. The patient expressed understanding. The patient denies a history of kidney or liver disease. We explained to the patient that physical therapy would likely improve his strength and function; however, the patient notes that he is unable to do it due to his limited mobility and his pain. We will consider physical therapy in the future after reviewing the patient's MRI. We will not add or change any other medications at this time as the patient is currently tolerating all medications with no significant side effects. We advised the patient to contact the clinic if they develop any new pain or worsening symptoms. IMPRESSION: 1. Bilateral posterior thigh pain. 2. Lumbar radiculopath y. 3. 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 4. Neck pain. Plan Of Treatment Pending Test Test Name Order Date MRI Lumbar Spine without contrast 2024 Next Appt Details Provider Name:Colten Greco 03/19/2025 10:00:00 AM, [address] [place], [address], Insurance Providers Payer Name Payer Address Payer Phone Subscriber Number Group Number Insured Name Patient Relationship to Insured Coverage Start Date Coverage End Date [facility] [address] [place] [id number] Rodney Dominguez Self - patient is the insured Medical (General) History Medical History History ICD Code Heart Stents Myocardial Infarction Growth on Left Lung COPD Hypertension Hypercholesterolemia Sleep Apnea Surgical History Surgery Date(Month/Year) AAA Stent 2022 Heart Stents 2020 Appendectomy 1957 Cervical Fusion 2022 Left Lung Microsurgery, followed by elizabeth dejesus half of the L Lung 2009 Hospitalization History Reason Date(Month/Year) See surgical history
== END 2025-03-16 15:53 | disposition home or self-care (01) ==
PROVIDERS: PCP Family Medicine; Visit Provider Physical Medicine & Rehabilitation Pain Medicine
DX: M51.369 Other intervertebral disc degeneration, lumbar region without mention of lumbar back pain or lower extremity pain (principal); I71.40 Abdominal aortic aneurysm, without rupture, unspecified
CPT/HCPCS: 72148

== ENCOUNTER 2025-03-26 01:13 | Emergency (ER) | payer MEDICARE, SELFPAY ==
--- NOTE | ~2025-03-26 | CT_ITS ---
EXAMINATION: CTA chest abdomen pelvis DATE: 03/26/2025 02:09 INDICATION: Chest pain. TECHNIQUE: Computed tomographic angiography (CTA) of the chest, abdomen, and pelvis was performed with 100 mL Omnipaque-350 intravenous contrast. Automated exposure control and iterative reconstruction technique were employed. The dose- length product was 971.54 mGy-cm. Maximum intensity projection 3D-r econstructions of the aorta and other arteries were constructed by the technologist on a separate workstation. COMPARISON: Chest CT 10/20/2020 FINDINGS: CHEST CTA: There is mild emphysema. There is mild atelectasis bilaterally. No pleural effusion. The heart size is normal. No pericardial effusion. There are coronary artery calcifications. There is ectasia of ascending aorta measuring 4.3 cm. Aortic atherosclerosis is noted. There is severe cervical and thoracic spondylosis. ABDOMEN AND PELVIS CTA: The liver, gallbladder, spleen, pancreas, and adrenal glands are normal. There are infarcts in the inferior aspects of the kidneys. There is 8 mm cyst in left kidney. The prostate is mildly enlarged. There is diverticulosis of the colon without evidence of diverticulitis. There are no dilated loops of bowel. The appendix is not visualized. There is a 5.4 cm fusiform aneurysm of infrarenal aorta with stent graft in expected position. There is no significant stenosis of celiac axis, superior mesenteric artery, or the superior renal arteries. 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 There are no pathologically enlarged lymph nodes. There is no free intraperitoneal fluid. There is severe lumbar spondylosis. IMPRESSION: 1. 5.4 cm fusiform aneurysm of infrarenal aorta with stent graft in expected position. No endoleak. 2. 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 3. Ectasia of ascending aorta measuring 4.3 cm. Reviewed, dictated and finalized at location E. IMPRESSION: 1. 5.4 cm fusiform aneurysm of infrarenal aorta with stent graft in expected po sition. No endoleak. 2. 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 3. Ectasia of ascending aorta measuring 4.3 cm.
--- NOTE | ~2025-03-26 | XR_ITS ---
Examination: XR chest 1V portable Clinical History: chest pain Comparison: 10/2023 Technique: Portable AP Findings: Heart size normal. Mild bibasilar atelectasis. No acute bony abnormality. IMPRESSION: 1. No acute cardiopulmonary findings given portable technique. Reviewed, dictated and finalized at location R.
--- NOTE | 2025-03-26 01:23 | ECG_ITS ---
Test Date: 2025-03-26 01:18:18 Measurements Intervals [place] Rate: 68 P: 59 [place]: 148 QRS: 64 QRSD: 97 T: 49 QT: 403 QTc: 430 Interpretive Statements SINUS RHYTHM No previous ECG available for comparison Electronically Signed On 03-26-2025 06:37:27 CDT by Melissa Rojas M.D.
[2025-03-26 01:26] VITALS: BP 159/99; PULSE 72; RESP 18; TEMP 36.6; O2SAT 96
[2025-03-26 01:29] LABS: Hematocrit 43.9 % (42.0-52.0); Hemoglobin 14.8 g/dL (14.0-18.0); Immature Granulocyte Percent A 0.1 % (0-0.5); Lymphocytes Absolute Auto 2.79 K/mm3 (0.9-3.2); Mean Corpuscular HGB Conc 33.7 g/dl (32-36); Mean Corpuscular Hemoglobin 32.0 pg (26-34); Mean Corpuscular Volume 94.8 fl (80-100); Nucleated Red Blood Cells Absolute Auto 0.000 K/mm3 (0.0-0.012); Nucleated Red Blood Cells Perc 0.0 % (0.0-0.2); Platelet Count Result 162 k/mm3 (150-375); Red Blood Count 4.63 M/mm3 (4.6-6.20); White Blood Count 7.6 K/mm3 (4.5-10.0)
--- NOTE | 2025-03-26 01:36 | ED_ITS ---
HPI - Chest Pain General Chief Complaint: Chest Pain Stated Complaint: CHEST PAIN W/ CARDIAC HISTORY Time Seen by Provider: 03/26/25 01:24 History of Present Illness HPI narrative: 70-year-old male with history of coronary artery disease status post IN with stent, history of AAA with vascular repair 2022. Patient takes baby aspirin at home. He states he has been having intermittent chest discomfort since yesterday. Worsening today and feels like it indigestion sensation and also feels like somebody punching him in the chest. No associated dyspnea, shortness a breath, nausea, vomiting, fever, chills, back pain, abdominal pain. Was otherwise in his normal state of health. Has had recent follow-up visit with his PCP with no recent acute health concerns. Patient called EMS as he states it feels like he was having heart attack. He got nitroglycerin x1 and pain improved at that time but also slightly recurred upon arrival to the ED. States that symptoms have come and gone since arrival to the ER. EKG was nonischemic initially. 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 Related Data Home Medications ?Medication ?Instructions ?Recorded ?Confirmed ?Last Taken ?Type aspirin 81 mg tablet,delayed 81 mg PO DAILY 08/20/19 0 12/29/24 10/19/22 History release acetaminophen 500 mg capsule 500 mg PO PRN PRN Pain 12/29/24 Unknown History Held on 10/28/22. Instructions: Resume on 11/10/22. until off of pain medicaitons rosuvastatin 20 mg tablet 20 mg PO HS 10/20/22 5 Unknown History Allergies Allergy/AdvReac Type Severity Reaction Status Date / Time amlodipine Allergy Unknown syncope Verified 03/26/25 01:29 Review of Systems 2 Review of Systems: As reviewed above in HPI [facility] Past Medical History Medical History Pain in deltoid COPD (chronic obstructive pulmonary disease) Lumbar spondylosis Mixed hyperlipidemia Obesity (BMI 30.0-34.9) Sleep apnea, unspecified Essential (primary) hypertension Surgical History Surgical History Status post cervical arthrodesis History of coronary artery stent placement x1, 2020 S/P AAA (abdominal aortic aneurysm) repair Family History Family History Father Family history of Alzheimer's disease Malignant neoplasm of prostate Mother Family history of pancreatic cancer Diabetes mellitus Sibling Malignant neoplasm of prostate Cerebrovascular accident Social History Social History Social History: Rodney is very confident filling out medical forms. In the last 12 months he has not received assistance from an organization or program. Caffeine-daily Smoking packs per day: 1 Smoking cigarettes per day: 20.0 Years smoked: 50 Smoking pack-years: 50.00 Smoking status: Current every day smoker Tobacco type: cigarettes Second hand tobacco smoke exposure: No Alcohol intake: never Drinks per week: 1 Substance use: current Substance use type: marijuana Last use: 10/19/22 Lack of Transportation: No Lack of Food: Never True Current Housing: I Have Housing Concerned About Future Housing: No Difficulty Paying Gas/Electric Bills: No Difficulty Paying for Meds: No Currently Unemployed: No Education: High School Diploma/GED Difficulty w/ Childcare or Family Care: No Living arrangements: with family Occupation/Education: retired Gender identity (if verbalized by the patient): Male Spiritual care concerns: No Agree to blood products: Yes Exam 2 Narrative: GENERAL: [Well-appearing, well-nourished, and in no acute distress.] HEAD: [Normocephalic, atraumatic.] EYES: [PERRLA and EOMI.] ENT: Nares clear, no rhinorrhea or epistaxis. Mucous membranes moist. NECK: Supple. CHEST: [Clear to auscultation. No respiratory distress.] HEART: [Regular rate and rhythm]. No murmur heard. [Normal peripheral pulses.] ABDOMEN: [Soft, nondistended], [nontender], [No rigidity or guarding] EXTREMITIES: Normal range of motion. [No edema.] SKIN: Warm, dry, no rash. Abdominal surgical scar NEURO: [No focal deficits]. Alert and oriented [x3.] PSYCH: [Normal mood and affect.] Course Vital Signs Vital signs: Vital Signs Temperature 36.6 C 03/26/25 01:26 Pulse Rate 72 03/26/25 01:26 Respiratory Rate 18 03/26/25 01:26 Blood Pressure 159/99 H 03/26/25 01:26 Pulse Oximetry 96 03/26/25 01:26 Oxygen Delivery Room Air 03/26/25 01:26 Temperature 36.6 C 03/26/25 01:26 Pulse Rate 68 03/26/25 01:49 Respiratory Rate 18 03/26/25 01:49 Blood Pressure 131/92 H 03/26/25 01:49 Pulse Oximetry 94 03/26/25 01:49 Oxygen Delivery Room Air 03/26/25 01:26 MDM - Chest Pain MDM Narrative Medical decision making narrative: 70-year-old male with history of coronary artery disease status post IN with stent, history of AAA with vascular repair 2022. Patient takes baby aspirin at home. He states he has been having intermittent chest discomfort since yesterday. Worsening today and feels like it indigestion sensation and also feels like somebody punching him in the chest. No associated dyspnea, shortness a breath, nausea, vomiting, fever, chills, back pain, abdominal pain. Was otherwise in his normal state of health. Has had recent follow-up visit with his PCP with no recent acute health concerns. Patient called EMS as he states it feels like he was having heart attack. He got nitroglycerin x1 and pain improved at that time but also slightly recurred upon arrival to the ED. States that symptoms have come and gone since arrival to the ER. EKG was nonischemic initially. 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 Patient's physical examination is reassuring and he is not in any acute physical or respiratory distress with strong symmetric pulses, clear breath sounds, normal vital signs aside from some stable hypertension. No tachycardia, tachypnea or fever. Differential includes ACS, thromboembolic disease/aortic syndrome given his history of AAA repair, gastritis, esophagitis, hiatal hernia, musculoskeletal chest pain. Given Pepcid IV and already received nitroglycerin and he took aspirin at home. Laboratory studies obtained as well as a chest x- ray and a CT angiography of his chest abdomen pelvis for evaluation of the vascular structures. CT angiography shows no acute abnormality. No dissection. He has a 4.3 cm aneurysm in the ascending aorta, repaired aneurysm in the descending aorta which has no stent thrombosis or dissection. No endovascular leak. No acute abnormalities. I did go over the CT angiography results and the aneurysm with the patient and he will follow up with his vascular surgeon which he already sees yearly for these. Chest x-ray shows no acute abnormalities. Patient's negative troponin x2. EKG without any acute evidence x2. Re-evaluated and a complain of some indigestion but he was felt much better after a GI cocktail. Patient expressing desire to go home. Given his unremarkable workup today he can be safely discharged with close outpatient follow-up and strict return precautions after I discussed with him. Patient comfortable the plan and discharge. Medical Records Data Attestation: I reviewed the patient's medical records. Lab Data Attestation: I reviewed the patient's lab results. 03/26/25 01:24 03/26/25 01:24 Labs: Lab Results 03/26/25 03/26/25 Range/Units 01:24 04:10 WBC 7.6 (4.5-10.0) K/mm3 RBC 4.63 (4.6-6.20) M/mm3 Hgb 14.8 (14.0-18.0) g/dL Hct 43.9 (42.0-52.0) % MCV 94.8 (80-100) fl MCH 32.0 (26-34) pg MCHC 33.7 (32-36) g/dl RDW 12.7 (11.5-14.5) % Plt Count 162 (150-375) k/mm3 MPV 11.0 H (7.4-10.4) fl Immature Gran % (Auto) 0.1 (0-0.5) % Neut % (Auto) 44.0 L (45.5-73.1) % Lymph % (Auto) 36.8 (18.3-44.2) % [place] % (Auto) 7.8 (2.6-8.5) % Eos % (Auto) 10.4 H (0-4.4) % Baso % (Auto) 0.9 (0.2-1.2) % Lymph # (Auto) 2.79 (0.9-3.2) K/mm3 [place] # (Auto) 0.6 (0.1-0.6) K/mm3 Eos # (Auto) 0.8 H (0-0.3) K/mm3 Baso # (Auto) 0.1 (0.0-0.1) K/mm3 Abs Immat Gran (auto) 0.01 (0.00-0.031) K/mm3 Absolute Neuts (auto) 3.3 (1.3-6.7) K/mm3 Absolute Nucleated RBC 0.000 (0.0-0.012) K/mm3 Nucleated RBC % 0.0 (0.0-0.2) % PT 13.8 (11.1-14.7) Seconds INR 1.0 APTT 29.4 (22.3-36.8) Seconds Sodium 137 (137-145) mmol/L Potassium 3.5 (3.4-5.0) mmol/L Chloride 101 (98-107) mmol/L Carbon Dioxide 36 H (22-30) mmol/L Anion Gap 0 L (4-12) mmol/L BUN 19 D (9-20) mg/dL Creatinine 1.04 (0.7-1.3) mg/dL Estim Creat Clear Calc 71 ml/min Estimated GFR > 60 (59 - ) Glucose 96 (65-110) mg/dL Calcium 9.1 (8.4-10.2) mg/dL Total Bilirubin 0.5 (0.2-1.3) mg/dL AST 28 (17-59) U/L ALT 21 (6-50) U/L Alkaline Phosphatase 49 (38-126) U/L Troponin I < 0.012 < 0.012 (0.000-0.034) ng/mL Total Protein 6.5 (6.3-8.2) g/dL Albumin 3.9 (3.5-5.1) g/dL Lipase 133 (23-300) U/L Imaging Data Attestation: I personally reviewed and interpreted this imaging study as follows: My impression: Impressions Chest X-Ray 03/26/25 06:02 IMPRESSION: 1. No acute cardiopulmonary findings given portable technique. Thoracic and abdominal aortic aneurysms, no dissection or endoleak. Repaired AAA. 4.3 cm thoracic aneurysm. No dissection. No acute abnormality. Discharge Plan Discharge Clinical Impression: Chest pain, Aortic aneurysm Patient Disposition: Home Condition: Stable Instructions: Antibiotic Form, Chest Pain (ED) Additional Instructions: Your cardiac levels are undetectable x2, normal EKG and chest x-ray. CT scan shows stable aneurysm and prior repair without acute finding or concerning features. Follow-up with your vascular surgeon with regular visits. Return with any recurrent chest pain, new or worsening symptoms or any other emergent concerns. Patient Language: [place]ian Prescriptions: No Action aspirin 81 mg tablet,delayed release (DR/EC) 81 mg PO DAILY duloxetine [Cymbalta] 60 mg capsule,delayed release(DR/EC) 60 mg PO DAILY Qty: 90 0RF acetaminophen 500 mg Capsule 500 mg PO PRN PRN (Reason: Pain) rosuvastatin 20 mg tablet 20 mg PO HS triamterene-hydrochlorothiazid 37.5-25 mg capsule 1 cap PO HS Qty: 90 1RF Rx Instructions: Take 1 capsule by mouth once daily lisinopril 40 mg tablet 40 mg PO HS Qty: 90 1RF albuterol sulfate 90 mcg/actuation HFA aerosol inhaler 2 inh inhalation Q2-4H PRN (Reason: Shortness Of Breath) Qty: 8.5 5RF metoprolol succinate 50 mg tablet extended release 24 hr 50 mg .ROUTE .COMPLEX Qty: 90 1RF Rx Instructions: 50 mg ; fluticasone propionate 50 mcg/actuation spray,suspension See Rx Instructions .ROUTE .COMPLEX Qty: 16 1RF Dose Instruction: Use 2 spray(s) in each nostril once daily Rx Instructions: Use 2 spray(s) in each nostril once daily Follow-up/Referrals: Allan Pimentel MD [Primary Care Provider, [facility]] Time of Disposition: 06:14
[2025-03-26 01:45] LABS: INR 1.0; Prothrombin Time 13.8 Seconds (11.1-14.7)
[2025-03-26 01:46] LABS: Partial Thromboplastin Time 29.4 Seconds (22.3-36.8)
[2025-03-26] MEDS: FAMOTIDINE 20 MG/2 ML VIAL IV PUSH (01:46)
[2025-03-26 01:47] VITALS: BP 150/91; PULSE 66; RESP 18; O2SAT 94
[2025-03-26 01:47] LABS: Alanine Aminotransferase 21 U/L (6-50); Albumin Level 3.9 g/dL (3.5-5.1); Alkaline Phosphatase 49 U/L (38-126); Anion Gap 0 mmol/L (4-12); Aspartate Amino Transferase 28 U/L (17-59); Bilirubin,Total 0.5 mg/dL (0.2-1.3); Blood Urea Nitrogen 19 mg/dL (9-20); Calcium 9.1 mg/dL (8.4-10.2); Carbon Dioxide 36 mmol/L (22-30); Chloride 101 mmol/L (98-107); Estimated CRCL calculation 71 ml/min; Estimated Glomerular Filt Rate > 60; Glucose 96 mg/dL (65-110); Lipase 133 U/L (23-300); Potassium 3.5 mmol/L (3.4-5.0); Sodium 137 mmol/L (137-145); Total Protein 6.5 g/dL (6.3-8.2)
[2025-03-26 01:49] VITALS: BP 131/92; PULSE 68; RESP 18; O2SAT 94
[2025-03-26 01:53] LABS: Troponin I < 0.012 ng/mL (0.000-0.034)
--- NOTE | 2025-03-26 04:24 | ECG_ITS ---
Test Date: 2025-03-26 04:19:15 Measurements Intervals [place] Rate: 54 P: 62 [place]: 137 QRS: 68 QRSD: 110 T: 56 QT: 425 QTc: 403 Interpretive Statements SINUS BRADYCARDIA Compared to ECG 03/26/2025 01:18:18 Sinus rhythm no longer present Electronically Signed On 03-26-2025 06:35:53 CDT by Melissa Rojas M.D.
[2025-03-26 04:43] LABS: Troponin I < 0.012 ng/mL (0.000-0.034)
--- NOTE | 2025-03-26 04:56 | PC.NURSE ---
ERP gave verbal order for pt to get 15mg toradol and GI cocktail
[2025-03-26] MEDS: KETOROLAC 15 MG/ML VIAL (*BKC) IV PUSH (05:02)
[2025-03-26] MEDS: BELLADONNA ALK/PHENOB ELIX 10 ML, MAG HYDROX/ALUMINUM HYD/SIMETH 30 ML, LIDOCAINE 2% VI... PO (05:02)
== END 2025-03-26 06:29 | disposition home or self-care (01) ==
PROVIDERS: Emergency Provider Student in an Organized Health Care Education/Training Program; PCP Family Medicine
DX: R07.9 Chest pain, unspecified (principal); I71.21 Aneurysm of the ascending aorta, without rupture; I25.10 Atherosclerotic heart disease of native coronary artery without angina pectoris; I25.2 Old myocardial infarction; Z95.5 Presence of coronary angioplasty implant and graft; F17.210 Nicotine dependence, cigarettes, uncomplicated
CPT/HCPCS: 36415; 71045; 71275; 74174; 80053; 83690; 84484; 85025; 85610; 85730; 93005; 96374; 96375; 99284; A9270; J1885; Q9967